=== PATIENT | female | born 1935 | race Caucasian/White ===

== ENCOUNTER 2022-11-04 16:12 | Inpatient (IN) | payer MEDICARE, OTHER ==
[~2022-11-04] VITALS: Ht 157.5 cm; Wt 85.7 kg
[2022-11-04] MEDS ORDERED: LORA-258 PO (16:49)
[2022-11-04] MEDS ORDERED: HYDR12.55 PO (16:50)
[2022-11-04] MEDS ORDERED: NIFE-34 PO (16:50)
[2022-11-04] MEDS ORDERED: GUAI400T61 PO (16:50)
[2022-11-04] MEDS ORDERED: HYDR-4077 PO (16:50)
[2022-11-04] MEDS ORDERED: GLUC1KIT IM (16:50)
[2022-11-04] MEDS ORDERED: MAGN400O6 PO (16:50)
[2022-11-04] MEDS ORDERED: MULT-447 PO (16:50)
[2022-11-04] MEDS ORDERED: SERT25TA5 PO (16:50)
[2022-11-04] MEDS ORDERED: ACET-2605 PO (16:50)
[2022-11-04] MEDS ORDERED: MEMA28CA5 PO (16:50)
[2022-11-04] MEDS ORDERED: FLUT1BLS INH (16:50)
[2022-11-04] MEDS ORDERED: DIVA-76 PO (16:50)
[2022-11-04] MEDS ORDERED: DONE5TAB34 PO (16:50)
[2022-11-04] MEDS ORDERED: ASCO-352 PO (16:50)
[2022-11-04] MEDS ORDERED: ICOS1CAP PO (16:50)
[2022-11-04] MEDS ORDERED: ACET-868 PO (16:50)
[2022-11-04] MEDS ORDERED: SENN-261 PO (16:50)
[2022-11-04] MEDS ORDERED: IRBE150T28 PO (16:50)
[2022-11-04] MEDS ORDERED: PANT40TA49 PO (16:50)
[2022-11-04] MEDS ORDERED: POTA-165 PO (16:50)
[2022-11-04] MEDS ORDERED: BISA10SU11 RC (16:50)
[2022-11-04] MEDS ORDERED: METO25TA3 PO (16:50)
[2022-11-04] MEDS ORDERED: ERGO500093 PO (16:50)
[2022-11-04] MEDS ORDERED: NA P133E RC (16:50)
[2022-11-04] MEDS ORDERED: DOCU-141 PO (16:50)
[2022-11-04] MEDS ORDERED: RISP0.2515 PO (16:50)
[2022-11-04] MEDS ORDERED: MONT10TA22 PO (16:50)
[2022-11-04] MEDS ORDERED: FURO20TA4 PO (16:50)
--- NOTE | 2022-11-04 16:50 | NUR ---
BHARAT FLOR [facility] FOR AGITATION/AGRRESSION TO FACILITY STAFF. THE PATIENT IS ALERT AND ORIENTED 1-2. DENIES PAIN. IN ROOM AIR AND DENIES SOB. RESPIRATION REGULAR AND UNLABORED. DENIES SI/HI. DENIES HAVING ANY TYPE OF HALLUCINATIONS. THE PATIENT IS ATTACHED TO THE MONITOR. WILL CONTINUE TO MONITOR THE PATIENT.
--- NOTE | 2022-11-04 17:08 | NUR ---
COVID SWAB DONE, URINE COLLECTED AND THE SPECIMENS ARE SENT TO THE LAB
[2022-11-04 17:37] LABS: BILIRUBIN,URINE NEGATIVE (NEGATIVE); COLOR,URINE YELLOW (YELLOW); LEUKOCYTE ESTERASE ,URINE TRACE (NEGATIVE); NITRITE, URINE NEGATIVE (NEGATIVE); PROTEIN,URINE TRACE mg/dl (NEGATIVE); UGLUCOSE NEGATIVE (NEGATIVE); UROBILINOGEN,URINE 0.2 EU/dL (0.2)
--- NOTE | 2022-11-04 18:07 | NUR ---
GOT BED 212-B ADMITTING INFORMED.
[2022-11-04 18:20] LABS: BASOPHILS # (AUTO) 0.1 K/uL (0.0-0.2); BASOPHILS % (AUTO) 1.3 % (0.0-2.0); EOSINOPHILS % (AUTO) 2.1 % (0.0-6.0); HEMATOCRIT 41 % (33-45); LYMPHOCYTES # (AUTO) 2.3 K/uL (0.8-4.8); LYMPHOCYTES % (AUTO) 28.4 % (20.0-44.0); MEAN CORPUSCULAR HGB CONC 32 g/dl (31.0-36.0); MEAN CORPUSCULAR VOLUME 78 fL (82-100); MONOCYTES # (AUTO) 1.2 K/uL (0.1-1.30); MONOCYTES % (AUTO) 14.4 % (2.0-12.0); NEUTROPHILS # (AUTO) 4.3 K/uL (1.8-8.9); NEUTROPHILS % (AUTO) 53.8 % (43.0-81.0); PLATELET COUNT (AUTO) 257 K/uL (150-450); RED BLOOD CELL COUNT(AUTO) 5.27 MIL/uL (4.0-5.2); WHITE BLOOD COUNT (AUTO) 8.1 K/uL (4.3-11.0)
[2022-11-04 18:34] LABS: BACTERIA,URINE Few /HPF (None Seen); RBC,URINE NONE SEEN /HPF (0-2)
[2022-11-04 18:35] LABS: HYALINE CASTS, URINE Few /LPF (None Seen); MUCUS,URINE Few /LPF (None Seen)
[2022-11-04 18:35] LABS: CALCIUM, SERUM 9.6 mg/dL (8.5-10.1); CARBON DIOXIDE 32 mmol/L (21-32); CHLORIDE 103 mmol/L (98-107); CREATININE 1.4 mg/dL (0.6-1.3); GLUCOSE 130 mg/dL (74-106); POTASSIUM 3.8 mmol/L (3.5-5.1); SODIUM SERUM 143 mmol/L (136-145); UREA NITROGEN, BLOOD 30 mg/dL (7-18)
[2022-11-04 18:40] LABS: ALANINE AMINOTRANSFERASE 20 U/L (12-78); ALBUMIN 3.2 g/dL (3.4-5.0); ALCOHOL, BLOOD < 3 mg/dL (0-0); ALKALINE PHOSPHATASE 68 U/L (46-116); ASPARTATE AMINOTRANSFERASE 13 U/L (15-37); BILIRUBIN,DIRECT 0.1 mg/dL (0.0-0.2); BILIRUBIN,TOTAL 0.5 mg/dL (0.2-1.0); TOTAL PROTEIN, SERUM 6.6 g/dL (6.4-8.2)
[2022-11-04] MEDS ORDERED: OLANZAPINE 10 MG VIAL IM ONE (19:00)
--- NOTE | 2022-11-04 19:30 | NUR ---
HENRIQUE FROM CRISIS TEAM AT BED SIDE
--- NOTE | 2022-11-04 19:46 | NUR ---
5150 HOLD EFFECTIVE 1945 GD
[2022-11-04] MEDS ORDERED: IV NS 0.9% 1,000 ML IV ONE (20:00)
--- NOTE | 2022-11-04 20:05 | NUR ---
CALLED TO GIVE REPORT. NOT ABLE TO TAKE REPORT RIGHT NOW. PER NURSE " HAVING A SITUATION, CANNOT TAKE REPORT RIGHT NOW".
--- NOTE | 2022-11-04 20:07 | NUR ---
NURSE AIR CHIPPER AWARE THAT [facility] DID NOT TAKE REPORT FOR 212
--- NOTE | 2022-11-04 20:18 | NUR ---
REPORT GIVEN TO JACKLYN VANEGAS BIJAL
--- NOTE | 2022-11-04 20:34 | NUR ---
TRANSFERRED TO [facility] IN STABLE CONDITION
[2022-11-04] MEDS ORDERED: MAG HYDROX/AL HYDROX/SIMETH 30 ML UDC PO PRN (21:00)
[2022-11-04] MEDS ORDERED: MAGNESIUM HYDROXIDE 30 ML UDC PO PRN (21:00)
[2022-11-04] MEDS ORDERED: BLOOD SUGAR DIAGNOSTIC 1 EACH STRIP IN ONE (21:00)
--- NOTE | 2022-11-04 23:06 | NUR ---
ADULT BASIC EDUCATION INSTRUCTOR NOTE: Admitted this 86 y/o female who was from [facility] ;medically cleared and placed on 5150 hold for Gravely Disable at [facility]. .Per hold ,patient was anxious,and restless,threatening to hit staff,screaming and yelling,responding to internal stimuli,preoccupied with her own thought ,talking to self ;threatening to strike out at staff,throwing objects at staff member,has poor impulse control and has no regards to the safety of others. Upon facer to face assessment,patient appears to be asleep but easily awaken ;accompanied by family member, her son upon arrival on the unit.Per report,patient received Zyprexa 10 mg IM prior ar ER to admission to [facility].Patient appears to alert,oriented to name only,confused ,disorganized thought process ,easily irritable and agitated .Skin check done,contraband done.Reviewed patient Rights and unable to verbalize understanding.MD notified of the patient admission.Will continue to monjitor q15 min rounds for safety.
[2022-11-05] MEDS: TEMAZEPAM 7.5 MG CAPSULE PO PRN (00:08)
--- NOTE | 2022-11-05 06:40 | NUR ---
RN CLOSING NOTE LEFT PATIENT SLEEPING IN BED. COMPLIANT WITH MEDICATIONS. PT UKRAINIAN SPEAKING ONLY. AMBULATORY WITH ASSIST. ALL NEEDS ATTENDED AND ANTICIPATED. WILL ENDORSE TO INCOMING SHIFT FOR CONTINUITY OF CARE.
[2022-11-05 08:00] VITALS: BP 124/54
[2022-11-05 08:47] LABS: CREATININE 1.2 mg/dL (0.6-1.3)
[2022-11-05] MEDS ORDERED: ACETAMINOPHEN ES 500 MG TABLET PO PRN (11:00)
[2022-11-05] MEDS ORDERED: BISACODYL SUPP (10 MG) 10 MG/SUPP.RECT SUPP.RECT RC PRN (11:00)
[2022-11-05] MEDS ORDERED: NA PHOS,M-B/NA PHOS,DI-BA 1 EA ENEMA RC PRN (11:00)
[2022-11-05] MEDS ORDERED: MAGNESIUM HYDROXIDE 30 ML UDC PO PRN (11:00)
--- NOTE | 2022-11-05 11:48 | NUR ---
SHANNAN Initial Discharge Note: Patient currently resides at [facility] located at [address] [place] [address]; ([phone]). SHANNAN will contact pt's son Leticia ([phone]) to discuss treatment/discharge plan. SHANNAN will continue to work with the MD, family, and treatment team.
--- NOTE | 2022-11-05 11:49 | NUR ---
Treatment Plan: Pt unable to sign treatment plan. Pt unable to comprehend.
--- NOTE | 2022-11-05 11:49 | NUR ---
SHANNAN Clinical Note: Pt placed on a 5150 hold for GD and danger to others. Pt was aggressive at her facility. Patient currently resides at [facility] located at [address] [place] [address]; ([phone]). SHANNAN will contact pt's son Leticia ([phone]) to discuss treatment/discharge plan.
[2022-11-05] MEDS: DIVALPROEX SODIUM 125 MG CAP.SPRINK PO SCH ×2 (12:47→16:35)
--- NOTE | 2022-11-05 13:11 | NUR ---
Facility Contact: SW contacted [facility] and spoke with Hafsa frias ([phone]) who stated that when pt is stable she is welcomed back but they would want a referral packet sent.
--- NOTE | 2022-11-05 13:55 | NUR ---
SHANNAN Family Contact: SHANNAN contacted pt's son Leticia ([phone]) and discussed treatment and discharge plan. He would want pt back to [facility] when pt is stable.
[2022-11-05 16:00] VITALS: BP 114/91
[2022-11-05] MEDS: risperiDONE 0.25 MG TABLET PO SCH (16:35)
[2022-11-05] MEDS: MEMANTINE HCL 5 MG TABLET PO SCH (16:35)
[2022-11-05] MEDS: DOCUSATE SODIUM 100 MG CAPSULE PO SCH (16:35)
[2022-11-05] MEDS ORDERED: Medication Not On Formulary EA (Icosapent Ethyl (Vascepa) 2 GM) PO SCH (17:00)
--- NOTE | 2022-11-05 20:23 | NUR ---
FINANCIAL SERVICES PROFESSIONAL NOTES: RECEIVED PATIENT IN HER ROOM, RESTING IN BED. CALM AND QUIET AT THIS TIME. A/O X2. ON ROOM AIR. BREATHING AND UNLABORED. NO ACUTE DISTRESS NOTED. NO C/O PAIN AT THIS TIME. SAFETY MEASURES IN PLACE. WILL CONTINUE TO MONITOR FOR SAFETY AND BEHAVIOR.
[2022-11-05 20:26] VITALS: BP 117/52
[2022-11-05] MEDS: SENNOSIDES 8.6 MG TABLET PO SCH (22:04)
--- NOTE | 2022-11-06 06:15 | NUR ---
GRANULATOR MACHINE OPERATOR NOTES: PATIENT IN BED, SLEEPING, EASILY AROUSABLE. A/O X2. NO DISTRESS NOTED. NO C/O PAIN AT THIS TIME. PATIENT CALM AND QUIET DURING SHIFT. SLEPT WELL. MEDICATION COMPLIANT. AMBULATORY WITH ASSISTANCE OF A WALKER. ALL NEEDS RENDERED. WILL ENDORSE TO ONCOMING SHIFT FOR CONTINUITY OF CARE.
[2022-11-06 08:00] VITALS: BP 152/54
[2022-11-06] MEDS: risperiDONE 0.25 MG TABLET PO SCH ×2 (09:27→17:39)
[2022-11-06] MEDS: PANTOPRAZOLE 40 MG TABLET.DR PO SCH (09:29)
[2022-11-06] MEDS: hydrALAZINE HCL 50 MG TABLET PO SCH (09:29)
[2022-11-06] MEDS: DIVALPROEX SODIUM 125 MG CAP.SPRINK PO SCH ×3 (09:29→17:38)
[2022-11-06] MEDS: METOPROLOL SUCCINATE 25 MG TAB.SR.24H PO SCH (09:29)
[2022-11-06] MEDS: MEMANTINE HCL 5 MG TABLET PO SCH ×2 (09:30→17:39)
[2022-11-06] MEDS: MONTELUKAST SODIUM (10MG) 10 MG TABLET PO SCH (09:30)
[2022-11-06] MEDS: DONEPEZIL 5 MG TABLET PO SCH (09:30)
[2022-11-06] MEDS: LOSARTAN POTASSIUM 50 MG TABLET PO SCH (09:30)
[2022-11-06] MEDS: NIFEDIPINE XL 60 MG TAB.ER.24 PO SCH (09:31)
[2022-11-06] MEDS: DOCUSATE SODIUM 100 MG CAPSULE PO SCH ×2 (09:31→17:39)
[2022-11-06] MEDS: HYDROCHLOROTHIAZIDE 25 MG TABLET PO SCH (09:33)
--- NOTE | 2022-11-06 11:30 | NUR ---
Patient yelling and screaming agitated holding her throat ,psychotic ,unable to follow directions dr. ugarte ordered zyprexa 5mg IM and given at 1130 .
[2022-11-06] MEDS ORDERED: OLANZAPINE 10 MG VIAL IM STA (11:31)
--- NOTE | 2022-11-06 11:38 | NUR ---
Dr. Ricardo ordered to cancel A1C.
--- NOTE | 2022-11-06 11:40 | NUR ---
Dr. Nguyen added Ativan 1 mg IM x1.
[2022-11-06] MEDS ORDERED: LORAZEPAM INJ 2 MG/ML VIAL IM ONE (12:00)
[2022-11-06] MEDS: LORAZEPAM 0.5 MG TABLET PO SCH (17:37)
[2022-11-06 18:47] VITALS: BP 137/53
--- NOTE | 2022-11-06 20:12 | NUR ---
CHEMIST PROTEINS NOTES:RECEIVED PATIENT UP ON THE NATE-CHAIR APPEAR CALM. A/OX2.PATIENT IS DISPLAYING NO APPARENT DISTRESS. BREATHING EVEN AND NON-LABORED WITH EQUAL RISE AND FALL OF THE CHEST. NO C/O PAIN OR DISCOMFORT AT THIS TIME. PATIENT IS RESTLESS, CONFUSED AND DISORIENTED. ALL NEEDS ATTENDED AND ANTICIPATED. WILL CONTINUE TO MONITOR Q15 MINS FOR SAFETY AND BEHAVIOR WITH HELP OF THE STAFF.
[2022-11-06 21:07] VITALS: BP 144/45
[2022-11-06] MEDS: SENNOSIDES 8.6 MG TABLET PO SCH (21:23)
[2022-11-06] MEDS: TEMAZEPAM 7.5 MG CAPSULE PO PRN (22:17)
--- NOTE | 2022-11-06 22:24 | NUR ---
PATIENT C/O INSOMNIA. ADMINISTER TEMAZEPAM 7.5 MG PRN ORDERED. WILL CONTINUE TO MONITOR
[2022-11-07 08:00] VITALS: BP 153/99
[2022-11-07] MEDS: MONTELUKAST SODIUM (10MG) 10 MG TABLET PO SCH (08:18)
[2022-11-07] MEDS: risperiDONE 0.25 MG TABLET PO SCH ×3 (08:18→16:36)
[2022-11-07] MEDS: DOCUSATE SODIUM 100 MG CAPSULE PO SCH ×2 (08:18→16:36)
[2022-11-07] MEDS: METOPROLOL SUCCINATE 25 MG TAB.SR.24H PO SCH (08:19)
[2022-11-07] MEDS: LORAZEPAM 0.5 MG TABLET PO SCH ×2 (08:19→16:38)
[2022-11-07] MEDS: hydrALAZINE HCL 50 MG TABLET PO SCH (08:20)
[2022-11-07] MEDS: PANTOPRAZOLE 40 MG TABLET.DR PO SCH (08:20)
[2022-11-07] MEDS: DONEPEZIL 5 MG TABLET PO SCH (08:20)
[2022-11-07] MEDS: DIVALPROEX SODIUM 125 MG CAP.SPRINK PO SCH ×3 (08:20→16:36)
[2022-11-07] MEDS: MEMANTINE HCL 5 MG TABLET PO SCH ×2 (08:20→16:36)
[2022-11-07] MEDS: LOSARTAN POTASSIUM 50 MG TABLET PO SCH (08:20)
[2022-11-07] MEDS: NIFEDIPINE XL 60 MG TAB.ER.24 PO SCH (08:23)
[2022-11-07] MEDS: HYDROCHLOROTHIAZIDE 25 MG TABLET PO SCH (08:24)
--- NOTE | 2022-11-07 09:35 | NUR ---
NOTED PT WITH BEHAVIOR YELLING AND SCREAMING WHILE UP IN NATE CHAIR WITH LAP. TRYING TO GET OUT OF THE NATE DASHA. REORIENTED PT PLACE AND TO STOP YELLING AND SCREAMING. PT DOESNT FOLLOW COMMANDS. CONT TO YELL ANG SCREAM. DR. RODRÍGUEZ NOTIFIED. AWAITING ORDER.
--- NOTE | 2022-11-07 09:44 | NUR ---
Dr. Nguyen ordered Ativan 1 mg IMx1 and Zyprexa 5 mg IMx1. Addendum: 11/07/22 at 1336 by JOSE M GOOD RN Jc Mcgraw made aware of the incident
[2022-11-07] MEDS ORDERED: LORAZEPAM INJ 2 MG/ML VIAL IM ONE (10:00)
[2022-11-07] MEDS ORDERED: OLANZAPINE 10 MG VIAL IM ONE (10:00)
[2022-11-07 16:00] VITALS: BP 140/75
[2022-11-07] MEDS: ACETAMINOPHEN 325 MG TABLET PO PRN (17:01)
--- NOTE | 2022-11-07 17:49 | NUR ---
PT IN BED AAOX1 WITH CONFUSION, WORDS DOESNT MAKE SENSE. MEDS GIVEN ORDERED. ON MONITORING Q15MIN. DENIES SI/HI.
--- NOTE | 2022-11-07 19:39 | NUR ---
RN NOTES: UPON ENDORSEMENT SHE WAS ASLEEP, AROUND 1926 SHE WAS AWAKE, ORIENTED TO UNIT AND STAFF, TALKING INCOMPREHENSIBLE WORDS, RN DO REDIRECTION BY OFFERING SNACK,SHE EAT JELLO AND APPLESAUCE, ASPIRATION PRECAUTION OBSERVED.
[2022-11-07 20:00] VITALS: BP 107/50
[2022-11-07] MEDS: SENNOSIDES 8.6 MG TABLET PO SCH (21:17)
[2022-11-07] MEDS: risperiDONE 1 MG TABLET PO SCH (21:17)
--- NOTE | 2022-11-07 21:32 | NUR ---
RN NOTES: AWAKE AND TOOK HER MEDICATION.ASPIRATION PRECAUTION OBSERVED.
[2022-11-08] MEDS: ACETAMINOPHEN 325 MG TABLET PO PRN (02:15)
--- NOTE | 2022-11-08 02:15 | NUR ---
RN NOTES: GUARDING POSITION ON THE ABDOMEN AREA, WHEN ASK IF SHE HAS PAIN, SHE WAS TELLING "DARD", GIVEN PRN MEDS.NON PHARMACOLOGIC INTERVENTION RENDERED
--- NOTE | 2022-11-08 05:58 | NUR ---
RN NOTES: AFTER PRN MEDS GIVEN ABLE TO SLEEP AND REST WELL AT 0230.STILL ASLEEP.
[2022-11-08 08:00] VITALS: BP 100/60
[2022-11-08] MEDS: DOCUSATE SODIUM 100 MG CAPSULE PO SCH ×2 (08:18→17:15)
[2022-11-08] MEDS: risperiDONE 0.25 MG TABLET PO SCH ×3 (08:19→17:14)
[2022-11-08] MEDS: MEMANTINE HCL 5 MG TABLET PO SCH ×2 (08:19→17:15)
[2022-11-08] MEDS: MONTELUKAST SODIUM (10MG) 10 MG TABLET PO SCH (08:19)
[2022-11-08] MEDS: DIVALPROEX SODIUM 125 MG CAP.SPRINK PO SCH ×3 (08:19→17:15)
[2022-11-08] MEDS: HYDROCHLOROTHIAZIDE 25 MG TABLET PO SCH (08:20)
[2022-11-08] MEDS: hydrALAZINE HCL 50 MG TABLET PO SCH (08:20)
[2022-11-08] MEDS: LOSARTAN POTASSIUM 50 MG TABLET PO SCH (08:21)
[2022-11-08] MEDS: METOPROLOL SUCCINATE 25 MG TAB.SR.24H PO SCH (08:21)
[2022-11-08] MEDS: LORAZEPAM 0.5 MG TABLET PO SCH ×3 (08:21→17:14)
[2022-11-08] MEDS: PANTOPRAZOLE 40 MG TABLET.DR PO SCH (08:22)
[2022-11-08] MEDS: NIFEDIPINE XL 60 MG TAB.ER.24 PO SCH (08:23)
[2022-11-08] MEDS: DONEPEZIL 5 MG TABLET PO SCH (09:06)
[2022-11-08] MEDS: LORAZEPAM 0.5 MG TABLET PO PRN (10:45)
--- NOTE | 2022-11-08 10:45 | NUR ---
pt c/o anxiety medicated with Ativan 0.5mg po x1 .
[2022-11-08 16:00] VITALS: BP 116/67
--- NOTE | 2022-11-08 19:05 | NUR ---
RN opening notes Received Pt from morning nurse. Pt is sitting comfortably in gerychair. Pt is alert and orientedX1-2, calm, and meds compliant. Pt speak Kenyan and able to make needs known. On room air. No SOB. No S/s of distress noted. Pt denies SI/HI at this time. Reality orientation provided. Snacks is offered. safety precautions is maintained. Will continue to monitor Q 15 mins checks for safety and behavior.
[2022-11-08 20:00] VITALS: BP 134/51
[2022-11-08] MEDS ORDERED: HYDROCODONE/APAP 10/325MG TABLET PO PRN (20:30)
[2022-11-08] MEDS: risperiDONE 1 MG TABLET PO SCH (21:39)
[2022-11-08] MEDS: SENNOSIDES 8.6 MG TABLET PO SCH (21:39)
[2022-11-09 07:07] LABS: BASOPHILS # (AUTO) 0.1 K/uL (0.0-0.2); EOSINOPHILS % (AUTO) 2.3 % (0.0-6.0); HEMATOCRIT 39 % (33-45); HEMOGLOBIN 12.4 g/dL (11.5-14.8); LYMPHOCYTES # (AUTO) 2.2 K/uL (0.8-4.8); LYMPHOCYTES % (AUTO) 24.7 % (20.0-44.0); MEAN CORPUSCULAR HGB CONC 32 g/dl (31.0-36.0); MEAN CORPUSCULAR VOLUME 77 fL (82-100); MONOCYTES # (AUTO) 1.3 K/uL (0.1-1.30); PLATELET COUNT (AUTO) 199 K/uL (150-450); WHITE BLOOD COUNT (AUTO) 8.7 K/uL (4.3-11.0)
[2022-11-09 07:24] LABS: ALBUMIN 2.5 g/dL (3.4-5.0); BILIRUBIN,TOTAL 0.5 mg/dL (0.2-1.0); CALCIUM, SERUM 8.9 mg/dL (8.5-10.1); POTASSIUM 3.8 mmol/L (3.5-5.1); TOTAL PROTEIN, SERUM 5.8 g/dL (6.4-8.2)
[2022-11-09 08:00] VITALS: BP 127/76
[2022-11-09] MEDS: hydrALAZINE HCL 50 MG TABLET PO SCH (08:51)
[2022-11-09] MEDS: DIVALPROEX SODIUM 125 MG CAP.SPRINK PO SCH ×3 (08:52→16:54)
[2022-11-09] MEDS: DOCUSATE SODIUM 100 MG CAPSULE PO SCH ×2 (08:52→16:53)
[2022-11-09] MEDS: METOPROLOL SUCCINATE 25 MG TAB.SR.24H PO SCH (08:52)
[2022-11-09] MEDS: risperiDONE 0.25 MG TABLET PO SCH (08:52)
[2022-11-09] MEDS: MEMANTINE HCL 5 MG TABLET PO SCH ×2 (08:52→16:54)
[2022-11-09] MEDS: PANTOPRAZOLE 40 MG TABLET.DR PO SCH (08:53)
[2022-11-09] MEDS: MONTELUKAST SODIUM (10MG) 10 MG TABLET PO SCH (08:53)
[2022-11-09] MEDS: LORAZEPAM 0.5 MG TABLET PO SCH ×3 (08:53→16:52)
[2022-11-09] MEDS: DONEPEZIL 5 MG TABLET PO SCH (08:53)
[2022-11-09] MEDS: HYDROCHLOROTHIAZIDE 25 MG TABLET PO SCH (08:53)
[2022-11-09] MEDS: LOSARTAN POTASSIUM 50 MG TABLET PO SCH (08:54)
[2022-11-09] MEDS: NIFEDIPINE XL 60 MG TAB.ER.24 PO SCH (08:57)
[2022-11-09 16:00] VITALS: BP 122/61
--- NOTE | 2022-11-09 18:42 | NUR ---
RN- CLOSING NOTES PATIENT ASLEEP, SITTING UP IN NATE CHAIR. BREATHING EVEN AND NON LABORED WITH NO S/S OF DISTRESS. PATIENT IS COOPERATIVE, CONFUSED, DISORIENTED, GUARDED, ANXIOUS, DEPRESSED, AND ISOLATIVE. PATIENT ATTEMPTING TO DISROBE AND GET OUT OF BED WITHOUT ASSISTANCE, PATIENT SAT UP IN NATE CHAIR FOR SAFETY. REQUIRES FREQUENT REDIRECTION. PATIENT IS MEDICATION RESISTANT BUT MEDICATION COMPLIANT WITH ENCOURAGEMENT. DENIES SI/HI BUT IS CONFUSED AT THIS TIME. WILL CONTINUE TO MONITOR Q 15 MINUTES FOR SAFETY AND BEHAVIOR.
[2022-11-09 20:00] VITALS: BP 118/58
[2022-11-09 20:35] VITALS: BP 118/58
[2022-11-09] MEDS: risperiDONE 1 MG TABLET PO SCH (21:14)
[2022-11-09] MEDS: SENNOSIDES 8.6 MG TABLET PO SCH (21:14)
[2022-11-09] MEDS: TEMAZEPAM 7.5 MG CAPSULE PO PRN (22:31)
[2022-11-10 08:00] VITALS: BP 128/79
[2022-11-10] MEDS: MEMANTINE HCL 5 MG TABLET PO SCH ×2 (08:31→16:28)
[2022-11-10] MEDS: LORAZEPAM 0.5 MG TABLET PO SCH ×3 (08:31→16:28)
[2022-11-10] MEDS: DONEPEZIL 5 MG TABLET PO SCH (08:31)
[2022-11-10] MEDS: METOPROLOL SUCCINATE 25 MG TAB.SR.24H PO SCH (08:32)
[2022-11-10] MEDS: hydrALAZINE HCL 50 MG TABLET PO SCH (08:33)
[2022-11-10] MEDS: DIVALPROEX SODIUM 125 MG CAP.SPRINK PO SCH ×2 (08:33→16:28)
[2022-11-10] MEDS: MONTELUKAST SODIUM (10MG) 10 MG TABLET PO SCH (08:34)
[2022-11-10] MEDS: NIFEDIPINE XL 60 MG TAB.ER.24 PO SCH (08:34)
[2022-11-10] MEDS: PANTOPRAZOLE 40 MG TABLET.DR PO SCH (08:34)
[2022-11-10] MEDS: LOSARTAN POTASSIUM 50 MG TABLET PO SCH (08:34)
[2022-11-10] MEDS: DOCUSATE SODIUM 100 MG CAPSULE PO SCH ×2 (08:34→16:28)
[2022-11-10] MEDS: HYDROCHLOROTHIAZIDE 25 MG TABLET PO SCH (08:35)
[2022-11-10 16:00] VITALS: BP 122/71
[2022-11-10 17:33] LABS: BILIRUBIN,URINE NEGATIVE (NEGATIVE); COLOR,URINE YELLOW (YELLOW); LEUKOCYTE ESTERASE ,URINE 3+ (NEGATIVE); NITRITE, URINE POSITIVE (NEGATIVE); PROTEIN,URINE 2+ mg/dl (NEGATIVE); UGLUCOSE NEGATIVE (NEGATIVE)
[2022-11-10 17:58] LABS: BACTERIA,URINE 3+ /HPF (None Seen); RBC,URINE 21-50 /HPF (0-2); SQUAMOUS EPITHELIAL CELL,UR None Seen /HPF (None Seen); WBC,URINE 51-80 /HPF (0-3)
[2022-11-10] MEDS: risperiDONE 1 MG TABLET PO SCH ×2 (18:44→21:34)
--- NOTE | 2022-11-10 19:01 | NUR ---
NURSE NOTE: URINE SPEC COLLECTED CLEAN CATCH AND SENT TO LAB FOR UA AND UCX. UA RESULTS GIVEN TO RACE CAR DRIVER NADIYA. PT TO START ON ATB. WILL ENFORCE TO BIOMETRICS CONSULTANT
[2022-11-10 21:06] VITALS: BP 104/45
[2022-11-10] MEDS: SENNOSIDES 8.6 MG TABLET PO SCH (21:34)
[2022-11-10] MEDS: CEPHALEXIN MONOHYDRATE 500 MG CAPSULE PO SCH (21:34)
--- NOTE | 2022-11-11 07:07 | NUR ---
[facility] RN NOTE RECEIVED PATIENT SLEEPING IN BED, NO S/S OF DISTRESS OR DISCOMFORT. PATIENT RESTING WELL, NO BEHAVIOR NOTED AT THIS TIME, A/Ox2. NO S/S OF RESPIRATORY DISTRESS. WILL CONTINUE TO MONITOR.
[2022-11-11 08:00] VITALS: BP 117/59
[2022-11-11] MEDS: HYDROCHLOROTHIAZIDE 25 MG TABLET PO SCH (09:00)
[2022-11-11] MEDS: METOPROLOL SUCCINATE 25 MG TAB.SR.24H PO SCH (09:00)
[2022-11-11] MEDS: hydrALAZINE HCL 50 MG TABLET PO SCH (09:00)
[2022-11-11] MEDS: NIFEDIPINE XL 60 MG TAB.ER.24 PO SCH (09:00)
[2022-11-11] MEDS: MEMANTINE HCL 5 MG TABLET PO SCH ×2 (09:00→16:42)
[2022-11-11] MEDS: DOCUSATE SODIUM 100 MG CAPSULE PO SCH ×2 (09:00→16:42)
[2022-11-11] MEDS: MONTELUKAST SODIUM (10MG) 10 MG TABLET PO SCH (09:06)
[2022-11-11] MEDS: DIVALPROEX SODIUM 125 MG CAP.SPRINK PO SCH ×2 (09:06→16:42)
[2022-11-11] MEDS: CEPHALEXIN MONOHYDRATE 500 MG CAPSULE PO SCH ×2 (09:06→20:04)
[2022-11-11] MEDS: PANTOPRAZOLE 40 MG TABLET.DR PO SCH (09:07)
[2022-11-11] MEDS: LORAZEPAM 0.5 MG TABLET PO SCH ×2 (09:07→12:03)
[2022-11-11] MEDS: risperiDONE 1 MG TABLET PO SCH ×3 (09:07→21:26)
[2022-11-11] MEDS: DONEPEZIL 5 MG TABLET PO SCH (09:07)
[2022-11-11] MEDS: LOSARTAN POTASSIUM 50 MG TABLET PO SCH (09:12)
--- NOTE | 2022-11-11 10:00 | NUR ---
RN NOTE PATIENT REFUSED TO TAKE ALL MORNING MEDICATION THIS MORNING. MOST MEDICATION ADMINISTERED, PATIENT BEGAN TO SPIT MEDICATION OUT AFTER FIRST FEW WERE TAKEN. PATIENT NOW RESTING IN BED, COMFORTABLE.
--- NOTE | 2022-11-11 10:02 | NUR ---
bond underwriter was notified by previous nurse that son of pt would like to speak to the Doctor today if possible.
--- NOTE | 2022-11-11 12:57 | NUR ---
RN NOTE PATIENT VERY SLEEPY, HOLDING AFTERNOON MD CHANDU AWARE.
--- NOTE | 2022-11-11 14:16 | NUR ---
Court Notification: SW contacted pt's son Leticia ([phone]) and notified of 5250 hearing.
--- NOTE | 2022-11-11 14:17 | NUR ---
Court Hearin hearing was upheld for danger to others and GD.
[2022-11-11 16:09] VITALS: BP 125/66
--- NOTE | 2022-11-11 18:50 | NUR ---
[facility] RN CLOSING NOTE PATIENT SLEEPING IN ROOM, NO S/S OF DISTRESS OR DISCOMFORT. PATIENT RESTING WELL, NO BEHAVIOR NOTED AT THIS TIME, A/Ox2. NO S/S OF RESPIRATORY DISTRESS. WILL CONTINUE TO MONITOR.
--- NOTE | 2022-11-11 19:30 | NUR ---
RN OPENING NOTES RECEIVED PATIENT IN BED WHILE SLEEPING. RESPONSIVE TO TACTILE STIMULI. NO FACIAL GRIMACING NOTED. NO PAIN NOTED. NO RESPIRATORY DISTRESS NOTED. SON VISITED THE PATIENT. PATIENT VERY SLEEPY. NOT OPENING HER EYES. WITH THE ASSISTANCE OF THE SON , ABLE TO AWAKEN THE PATIENT. CHECKED BLOOD SUGAR NOTED 140. GAVE WATER AND SOME JELLO. PATIENT WAS ABLE TO SWALLOW. THE SON STATED PLEASE DO NOT GIVE RISPERDAL SINCE SHE IS SO SLEEPY. KEFLEX GIVEN AT 2000. PATIENT WAS ABLE TO SWALLOW. THE SON GAVE HER THE WHOLE APPLE SAUCE AND JELLO AND ENCOURAGED FOR WATER CONSUMPTION. ALL NEEDS ATTENDED. VITAL SIGNS IN NORMAL RANGES. SON CONCERN FOR THE PATIENT'S CONDITION AND BEING SLEEPY MOST OF THE TIME. WILL ENDORSE IN THE MORNING FOR HYDRATION AND FOOD CONSUMPTION. ALL SAFETY MEASURES IN PLACE. HOB ELEVATED. BED LOCKED IN THE LOWEST POSITION. TABLE IN EASY REACH.BED ALARM ON . WILL CONTINUE TO MONITOR CLOSELY.
[2022-11-11 20:15] VITALS: BP 118/67
[2022-11-11] MEDS: SENNOSIDES 8.6 MG TABLET PO SCH (21:26)
--- NOTE | 2022-11-11 22:00 | NUR ---
RN NOTES PER SON'S REQUEST HELD RISPERDAL FOR 0 SINCE PATIENT SO SLEEPY.
--- NOTE | 2022-11-12 06:42 | NUR ---
RN CLOSING NOTES PATIENT IN BED AND SLEEPING. RESPONSIVE TO TACTILE STIMULI. NO FACIAL GRIMACING NOTED. NO PAIN NOTED. NO RESPIRATORY DISTRESS NOTED. PATIENT WAS ABLE TO SWALLOW. OFFERED WATER AND JUICE DURING SHIFT. NO BEHAVIORAL ISSUE NOTED. ALL NEEDS ATTENDED. DUE MEDS GIVEN ORDERED. ALL SAFETY MEASURES IN PLACE. HOB ELEVATED FOR ASPIRATION PRECAUTION. BED LOCKED IN THE LOWEST POSITION. TABLE IN EASY REACH.BED ALARM ON . WILL ENDORSE FOR BIJAL.
[2022-11-12 08:00] VITALS: BP 151/52
[2022-11-12] MEDS: hydrALAZINE HCL 50 MG TABLET PO SCH (08:53)
[2022-11-12] MEDS: NIFEDIPINE XL 60 MG TAB.ER.24 PO SCH (08:54)
[2022-11-12] MEDS: MEMANTINE HCL 5 MG TABLET PO SCH ×2 (08:54→16:36)
[2022-11-12] MEDS: risperiDONE 1 MG TABLET PO SCH ×3 (08:54→21:02)
[2022-11-12] MEDS: CEPHALEXIN MONOHYDRATE 500 MG CAPSULE PO SCH ×2 (08:55→21:02)
[2022-11-12] MEDS: DOCUSATE SODIUM 100 MG CAPSULE PO SCH ×2 (08:55→16:36)
[2022-11-12] MEDS: PANTOPRAZOLE 40 MG TABLET.DR PO SCH (08:55)
[2022-11-12] MEDS: DONEPEZIL 5 MG TABLET PO SCH (08:55)
[2022-11-12] MEDS: DIVALPROEX SODIUM 125 MG CAP.SPRINK PO SCH ×2 (08:55→16:37)
[2022-11-12] MEDS: MONTELUKAST SODIUM (10MG) 10 MG TABLET PO SCH (08:55)
[2022-11-12] MEDS: LOSARTAN POTASSIUM 50 MG TABLET PO SCH (08:55)
[2022-11-12] MEDS: METOPROLOL SUCCINATE 25 MG TAB.SR.24H PO SCH (08:56)
[2022-11-12] MEDS: HYDROCHLOROTHIAZIDE 25 MG TABLET PO SCH (08:57)
[2022-11-12 16:00] VITALS: BP 136/57
[2022-11-12] MEDS ORDERED: Z GUARD REMEDY 4 OZ OINT TP PRN (18:00)
[2022-11-12 20:07] VITALS: BP 126/45
[2022-11-12] MEDS: Z GUARD REMEDY 4 OZ OINT TP SCH (21:02)
[2022-11-12] MEDS: SENNOSIDES 8.6 MG TABLET PO SCH (21:03)
[2022-11-12] MEDS: ACETAMINOPHEN 325 MG TABLET PO PRN (21:27)
--- NOTE | 2022-11-12 23:12 | NUR ---
RN NOTES PATIENT NOTED 99.2 BODY TEMPERATURE TYLENOL 650MG ORALLY GIVEN AND WELL TOLERATED BY THE PATIENT. WILL CONTINUE TO MONITOR.
--- NOTE | 2022-11-12 23:13 | NUR ---
RN NOTES PATIENT RELATIVES REFUSED TO GIVE RISPERDAL AND [place] TO THE PATIENT TICO. PATIENT RELATIVES VERBALIZED " SHE IS ALWAYS ASLEEP FOR 2 DAYS ". WILL CONTINUE TO MONITOR. Addendum: 11/12/22 at 2340 by Clementina Reich RN PATIENT SON WANTS TO TALK TO IN AM.
[2022-11-13 06:31] LABS: BASOPHILS # (AUTO) 0.1 K/uL (0.0-0.2); BASOPHILS % (AUTO) 0.7 % (0.0-2.0); EOSINOPHILS % (AUTO) 1.2 % (0.0-6.0); HEMATOCRIT 40 % (33-45); HEMOGLOBIN 12.7 g/dL (11.5-14.8); LYMPHOCYTES # (AUTO) 1.9 K/uL (0.8-4.8); LYMPHOCYTES % (AUTO) 22.8 % (20.0-44.0); MEAN CORPUSCULAR HGB CONC 32 g/dl (31.0-36.0); MEAN CORPUSCULAR VOLUME 78 fL (82-100); MONOCYTES # (AUTO) 1.6 K/uL (0.1-1.30); MONOCYTES % (AUTO) 19.5 % (2.0-12.0); NEUTROPHILS # (AUTO) 4.7 K/uL (1.8-8.9); NEUTROPHILS % (AUTO) 55.8 % (43.0-81.0); PLATELET COUNT (AUTO) 223 K/uL (150-450); RED BLOOD CELL COUNT(AUTO) 5.17 MIL/uL (4.0-5.2); WHITE BLOOD COUNT (AUTO) 8.4 K/uL (4.3-11.0)
[2022-11-13 07:06] LABS: ALBUMIN 2.1 g/dL (3.4-5.0); BILIRUBIN,TOTAL 0.5 mg/dL (0.2-1.0); CALCIUM, SERUM 9.3 mg/dL (8.5-10.1); POTASSIUM 3.5 mmol/L (3.5-5.1); TOTAL PROTEIN, SERUM 6.2 g/dL (6.4-8.2)
[2022-11-13 08:00] VITALS: BP 139/67
[2022-11-13] MEDS: DONEPEZIL 5 MG TABLET PO SCH (09:00)
[2022-11-13] MEDS: MONTELUKAST SODIUM (10MG) 10 MG TABLET PO SCH (09:00)
[2022-11-13] MEDS: DOCUSATE SODIUM 100 MG CAPSULE PO SCH ×2 (09:00→16:53)
[2022-11-13] MEDS: MEMANTINE HCL 5 MG TABLET PO SCH ×2 (09:00→16:53)
[2022-11-13] MEDS: METOPROLOL SUCCINATE 25 MG TAB.SR.24H PO SCH (09:00)
[2022-11-13] MEDS: NIFEDIPINE XL 60 MG TAB.ER.24 PO SCH (09:00)
[2022-11-13] MEDS: LOSARTAN POTASSIUM 50 MG TABLET PO SCH (09:00)
[2022-11-13] MEDS: hydrALAZINE HCL 50 MG TABLET PO SCH (09:00)
[2022-11-13] MEDS: HYDROCHLOROTHIAZIDE 25 MG TABLET PO SCH (09:00)
[2022-11-13] MEDS: CEPHALEXIN MONOHYDRATE 500 MG CAPSULE PO SCH ×2 (09:00→22:08)
[2022-11-13] MEDS: risperiDONE 1 MG TABLET PO SCH ×3 (09:00→22:09)
[2022-11-13] MEDS: PANTOPRAZOLE 40 MG TABLET.DR PO SCH (09:00)
[2022-11-13] MEDS: DIVALPROEX SODIUM 125 MG CAP.SPRINK PO SCH ×3 (09:00→16:54)
[2022-11-13] MEDS: Z GUARD REMEDY 4 OZ OINT TP SCH ×2 (10:17→22:10)
--- NOTE | 2022-11-13 10:31 | NUR ---
RN-NOTES ALL AM MEDICATIONS WAS NOT ADMINISTER DUE TO PATIENT IS TOO SEDATED. CHARGE NURSE WAS AWARE. WILL NOTIFY THE PSYCHIATRIST
--- NOTE | 2022-11-13 12:07 | NUR ---
RN-NOTES DR. RODRÍGUEZ IN THE UNIT AND MADE AWARE OF ALL 0900 AM MEDICATIONS WAS NOT ADMINISTER DUE TO PATIENT WAS TOO SEDATED AND THAT PATIENT'S SON REQUESTING TO TALK TO HER ( PSYCHIATRIST).
[2022-11-13] MEDS: LORAZEPAM 0.5 MG TABLET PO PRN (13:58)
--- NOTE | 2022-11-13 13:59 | NUR ---
RN-NOTES PATIENT SITTING UP IN THE NATE CHAIR NEXT TO THE NURSE STATION ,NOTED WITH SUDDEN SCREAMING AND YELLING ,REDIRECTED AND ATIVAN 0.5MG P.O GIVEN PRN ORDER. WILL CONT. MONITORING FOR SAFETY AND BEHAVIOR.
--- NOTE | 2022-11-13 15:00 | NUR ---
RN-NOTES PATIENT STILL AT THE NATE CHAIR NEXT TO THE NURSE STATION, CALM INTERMITTENTLY SLEEPING,NO ACUTE DISTRESS NOTED.
[2022-11-13 16:00] VITALS: BP 132/67
[2022-11-13 16:49] LABS: LYMPHOCYTES % (MANUAL) 24 % (16-48); MONOCYTES % (MANUAL) 13 % (0-11.0); NEUTROPHILS % (MANUAL) 63 (42-76)
--- NOTE | 2022-11-13 18:00 | NUR ---
RN-NOTES PATIENT IS VISIBLE IN THE UNIT A/O X1 GUARDED WITH EPISODE OF YELLING AND SCREAMING,NEEDS FREQUENT REDIRECTIONS AND INSTRUCTIONS. COMPLIANT WITH MEDICATIONS WITH ENCOURAGEMENT. NEEDS MODERATE ASSIST WITH ADL'S AND FEEDING. GOOD CHASITY CARE RENDERED. ON PT THERAPY. PATIENT HAD NO PARTICIPATION ON THE ACTIVITY GROUP. ALL NEEDS ATTENDED AND ANTICIPATED. WILL CONT. MONITORING FOR SAFETY AND BEHAVIOR. WILL ENDORSE TO INCOMING SHIFT/NURSE FOR THE CONTINUITY OF CARE.
--- NOTE | 2022-11-13 18:54 | NUR ---
RN-NOTES RECEIVED T.O ORDER FROM RANI CARL OF ACCU-CHECK BID WITH MILD SLIDING SCALE. NOTED AND CARRIED OUT.
[2022-11-13] MEDS ORDERED: DEXTROSE 50%-WATER 50 ML DISP.SYRIN IV PRN (19:00)
--- NOTE | 2022-11-13 20:31 | NUR ---
BENCH ASSEMBLER NOTE: RECEIVED PATIENT SITTING UP IN THE NATE CHAIR NEXT TO THE NURSE STATION CALM AND QUIET WITH FAMILY AT HER SIDE. BREATHING EVEN AND NON-LABORED WITH EQUAL RISE AND FALL OF THE CHEST.RESIDENT TRANSFER TO BED@ 2000 PER FAMILY REQUEST.RESIDENT ASLEEP COMFORTABLY WITH NO S/S OF DISTRESS. NO C/O PAIN NOR DISCOMFORT AT THIS TIME.ALL NEEDS MET AND ANTICIPATED.WILL CONTINUE TO MONITOR Q15 MINS FOR SAFETY AND BEHAVIOR
[2022-11-13] MEDS: SENNOSIDES 8.6 MG TABLET PO SCH (22:09)
--- NOTE | 2022-11-14 07:00 | NUR ---
CARDIAC SPECIALIST OPENING NOTE PATIENT RESTING IN BED, NO S/S OF DISCOMFORT NOTED, NO RESPIRATORY DISTRESS NOTED. SAFETY MEASURES IN PLACE. BED LOCKED TO THE LOWEST POSITION. SIDE RAILS UP X4, TABLE WITHIN REACH. CONT. TO MONITOR.
[2022-11-14 08:00] VITALS: BP 140/58
[2022-11-14] MEDS: BLOOD SUGAR DIAGNOSTIC 1 EACH STRIP IN SCH ×2 (08:06→17:49)
[2022-11-14] MEDS: NIFEDIPINE XL 60 MG TAB.ER.24 PO SCH (09:00)
[2022-11-14] MEDS: DIVALPROEX SODIUM 125 MG CAP.SPRINK PO SCH ×3 (09:38→17:50)
[2022-11-14] MEDS: DOCUSATE SODIUM 100 MG CAPSULE PO SCH ×2 (09:39→17:51)
[2022-11-14] MEDS: hydrALAZINE HCL 50 MG TABLET PO SCH (09:39)
[2022-11-14] MEDS: DONEPEZIL 5 MG TABLET PO SCH (09:39)
[2022-11-14] MEDS: MEMANTINE HCL 5 MG TABLET PO SCH ×2 (09:39→17:50)
[2022-11-14] MEDS: HYDROCHLOROTHIAZIDE 25 MG TABLET PO SCH (09:40)
[2022-11-14] MEDS: CEPHALEXIN MONOHYDRATE 500 MG CAPSULE PO SCH ×2 (09:40→21:16)
[2022-11-14] MEDS: PANTOPRAZOLE 40 MG TABLET.DR PO SCH (09:41)
[2022-11-14] MEDS: LOSARTAN POTASSIUM 50 MG TABLET PO SCH (09:41)
[2022-11-14] MEDS: METOPROLOL SUCCINATE 25 MG TAB.SR.24H PO SCH (09:41)
[2022-11-14] MEDS: MONTELUKAST SODIUM (10MG) 10 MG TABLET PO SCH (09:41)
[2022-11-14] MEDS: risperiDONE 1 MG TABLET PO SCH ×3 (09:45→21:17)
[2022-11-14] MEDS: INSULIN REGULAR, HUMAN 100 UNIT/ML 3 ML VIAL SQ PRN (09:59)
[2022-11-14] MEDS: LORAZEPAM 0.5 MG TABLET PO PRN ×2 (12:03→19:16)
[2022-11-14] MEDS: Z GUARD REMEDY 4 OZ OINT TP SCH ×2 (14:01→21:18)
[2022-11-14 15:58] VITALS: BP 163/83
--- NOTE | 2022-11-14 19:24 | NUR ---
JOURNEYMAN LEVEL ACOUSTIC ANALYST NOTE PATIENT SCREAMING WHILE CLEANING HER UP BY TWO UTILITY LOCATE TECHNICIAN. ATIVAN 0.5MG PO GIVEN INDICATED BY MD. PATIENT TOOK ATIVAN CRUSHED WITHOUT ANY PROBLEM.
--- NOTE | 2022-11-14 20:34 | NUR ---
ASSISTANT PROFESSOR NOTE: RECEIVED PATIENT IN BED AWAKE .A/OX2. BREATHING EVEN AND NON-LABORED WITH EQUAL RISE AND FALL OF THE CHEST. NO C/O PAIN NOR DISCOMFORT AT THIS TIME.RESIDENT IS CONFUSED,RESTLESS ,AGITATED AND DISORGANIZED.BED IN LOWEST,LOCKED POSITION WITH SIDE RAILS UPX2.GOOD CHASITY-CARE RENDERED..ALL NEEDS MET AND ANTICIPATED.WILL CONTINUE TO MONITOR Q15 MINS FOR SAFETY AND BEHAVIOR
[2022-11-14] MEDS: SENNOSIDES 8.6 MG TABLET PO SCH (21:17)
[2022-11-15 08:00] VITALS: BP 147/61
[2022-11-15] MEDS: CEPHALEXIN MONOHYDRATE 500 MG CAPSULE PO SCH ×2 (08:30→21:37)
[2022-11-15] MEDS: MONTELUKAST SODIUM (10MG) 10 MG TABLET PO SCH (08:30)
[2022-11-15] MEDS: NIFEDIPINE XL 60 MG TAB.ER.24 PO SCH (08:30)
[2022-11-15] MEDS: MEMANTINE HCL 5 MG TABLET PO SCH ×2 (08:30→16:59)
[2022-11-15] MEDS: DIVALPROEX SODIUM 125 MG CAP.SPRINK PO SCH ×3 (08:31→16:58)
[2022-11-15] MEDS: PANTOPRAZOLE 40 MG TABLET.DR PO SCH (08:31)
[2022-11-15] MEDS: METOPROLOL SUCCINATE 25 MG TAB.SR.24H PO SCH (08:31)
[2022-11-15] MEDS: DOCUSATE SODIUM 100 MG CAPSULE PO SCH ×2 (08:31→16:58)
[2022-11-15] MEDS: DONEPEZIL 5 MG TABLET PO SCH (08:32)
[2022-11-15] MEDS: HYDROCHLOROTHIAZIDE 25 MG TABLET PO SCH (08:32)
[2022-11-15] MEDS: hydrALAZINE HCL 50 MG TABLET PO SCH (08:32)
[2022-11-15] MEDS: risperiDONE 1 MG TABLET PO SCH ×3 (08:32→21:37)
[2022-11-15] MEDS: LOSARTAN POTASSIUM 50 MG TABLET PO SCH (08:33)
[2022-11-15] MEDS: INSULIN REGULAR, HUMAN 100 UNIT/ML 3 ML VIAL SQ PRN ×2 (08:50→17:52)
[2022-11-15] MEDS: BLOOD SUGAR DIAGNOSTIC 1 EACH STRIP IN SCH ×2 (09:02→17:01)
[2022-11-15] MEDS: Z GUARD REMEDY 4 OZ OINT TP SCH ×2 (09:03→21:39)
[2022-11-15 16:00] VITALS: BP_SYST 120; BP_SYST 128; BP_DIAS 65; BP_DIAS 67
[2022-11-15] MEDS ORDERED: DEXTROSE 50%-WATER 50 ML DISP.SYRIN IV PRN (16:30)
--- NOTE | 2022-11-15 19:49 | NUR ---
UNDERGROUND BOLTING MACHINE OPERATOR NOTE: RECEIVED PATIENT IN BED AWAKE .A/OX2. BREATHING EVEN AND NON-LABORED WITH EQUAL RISE AND FALL OF THE CHEST. NO C/O PAIN NOR DISCOMFORT AT THIS TIME.RESIDENT IS CONFUSED,RESTLESS ,AGITATED AND DISORGANIZED.MEDICATION COMPLIANT.BED IN LOWEST,LOCKED POSITION WITH SIDE RAILS UPX2.GOOD CHASITY-CARE RENDERED.ALL NEEDS MET AND ANTICIPATED.WILL CONTINUE TO MONITOR Q15 MINS FOR SAFETY AND BEHAVIOR
[2022-11-15 20:43] VITALS: BP_SYST 111; BP_SYST 152; BP_DIAS 59; BP_DIAS 83
[2022-11-15] MEDS: SENNOSIDES 8.6 MG TABLET PO SCH (21:37)
[2022-11-16 08:00] VITALS: BP 133/55
[2022-11-16] MEDS: MEMANTINE HCL 5 MG TABLET PO SCH ×2 (09:45→17:10)
[2022-11-16] MEDS: risperiDONE 1 MG TABLET PO SCH ×3 (09:55→21:39)
[2022-11-16] MEDS: DOCUSATE SODIUM 100 MG CAPSULE PO SCH ×2 (09:55→17:09)
[2022-11-16] MEDS: BLOOD SUGAR DIAGNOSTIC 1 EACH STRIP IN SCH ×2 (09:55→17:09)
[2022-11-16] MEDS: MONTELUKAST SODIUM (10MG) 10 MG TABLET PO SCH (09:55)
[2022-11-16] MEDS: HYDROCHLOROTHIAZIDE 25 MG TABLET PO SCH (09:55)
[2022-11-16] MEDS: PANTOPRAZOLE 40 MG TABLET.DR PO SCH (09:55)
[2022-11-16] MEDS: LOSARTAN POTASSIUM 50 MG TABLET PO SCH (09:55)
[2022-11-16] MEDS: METOPROLOL SUCCINATE 25 MG TAB.SR.24H PO SCH (09:55)
[2022-11-16] MEDS: Z GUARD REMEDY 4 OZ OINT TP SCH ×2 (09:55→21:45)
[2022-11-16] MEDS: hydrALAZINE HCL 50 MG TABLET PO SCH (09:55)
[2022-11-16] MEDS: NIFEDIPINE XL 60 MG TAB.ER.24 PO SCH (09:55)
[2022-11-16] MEDS: DIVALPROEX SODIUM 125 MG CAP.SPRINK PO SCH ×3 (09:55→17:09)
[2022-11-16] MEDS: DONEPEZIL 5 MG TABLET PO SCH (09:55)
[2022-11-16] MEDS: CEPHALEXIN MONOHYDRATE 500 MG CAPSULE PO SCH ×2 (09:55→21:38)
--- NOTE | 2022-11-16 11:05 | NUR ---
MEDICATION NOTE AM MEDICATION WAS HELD. PATIENT TOO SEDATED/ SLEEPY. MULTIPLE ATTEMPTS WERE MADE TO FOLLOW UP WITH PATIENT ALERTNESS. PATIENT WILL AWAKE, OPEN EYES AND SPEAK, UNCLEAR AND UNABLE TO UNDERSTAND. PATIENT THEN WILL FALL BACK TO SLEEP.
[2022-11-16] MEDS: INSULIN REGULAR, HUMAN 100 UNIT/ML 3 ML VIAL SQ PRN ×2 (13:31→17:51)
[2022-11-16 16:00] VITALS: BP 131/53
--- NOTE | 2022-11-16 17:20 | NUR ---
MEDICATION NOTE HELD RISPERIDONE, PT WAS TOO SEDATED. AWAKES FOR SHORT PERIODS OR TO EAT.
[2022-11-16] MEDS: ACETAMINOPHEN 325 MG TABLET PO PRN (18:24)
[2022-11-16 20:11] VITALS: BP 134/58
--- NOTE | 2022-11-16 20:55 | NUR ---
TWISTING FRAME CHANGER NOTE: RECEIVED PATIENT IN BED ASLEEP /AROUSABLE. A/OX2. BREATHING EVEN AND NON-LABORED WITH EQUAL RISE AND FALL OF THE CHEST. NO C/O PAIN NOR DISCOMFORT AT THIS TIME.RESIDENT IS CONFUSED,RESTLESS ,AGITATED AND DISORGANIZED.ASSISTING ON TURNING AND REPOSITIONING Q2H FOR CIRCULATION AND COMFORT. BED IN LOWEST,LOCKED POSITION WITH SIDE RAILS UPX2.GOOD CHASITY-CARE RENDERED. ALL NEEDS MET AND ANTICIPATED.WILL CONTINUE TO MONITOR Q15 MINS FOR SAFETY AND BEHAVIOR
[2022-11-16] MEDS: SENNOSIDES 8.6 MG TABLET PO SCH (21:39)
--- NOTE | 2022-11-17 07:16 | NUR ---
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 PT IS INCONTINENT. RECOMMENDATIONS MADE FOR SKIN CARE AND PROTECTION. DISCUSSED WITH NURSING STAFF. IN AGREEMENT WITH PLAN OF CARE. Addendum: 11/17/22 at 0717 by JENNY ECHAVARRIA WNDNU Amended: Links added.
[2022-11-17 08:00] VITALS: BP 145/59
[2022-11-17] MEDS: BLOOD SUGAR DIAGNOSTIC 1 EACH STRIP IN SCH ×2 (08:27→16:32)
[2022-11-17] MEDS: PANTOPRAZOLE 40 MG TABLET.DR PO SCH (08:42)
[2022-11-17] MEDS: hydrALAZINE HCL 50 MG TABLET PO SCH (08:42)
[2022-11-17] MEDS: METOPROLOL SUCCINATE 25 MG TAB.SR.24H PO SCH (08:43)
[2022-11-17] MEDS: risperiDONE 1 MG TABLET PO SCH (08:43)
[2022-11-17] MEDS: DIVALPROEX SODIUM 125 MG CAP.SPRINK PO SCH ×4 (08:43→17:14)
[2022-11-17] MEDS: MEMANTINE HCL 5 MG TABLET PO SCH ×2 (08:43→17:14)
[2022-11-17] MEDS: DONEPEZIL 5 MG TABLET PO SCH (08:44)
[2022-11-17] MEDS: CEPHALEXIN MONOHYDRATE 500 MG CAPSULE PO SCH ×2 (08:44→20:19)
[2022-11-17] MEDS: NIFEDIPINE XL 60 MG TAB.ER.24 PO SCH (08:44)
[2022-11-17] MEDS: LOSARTAN POTASSIUM 50 MG TABLET PO SCH (08:44)
[2022-11-17] MEDS: MONTELUKAST SODIUM (10MG) 10 MG TABLET PO SCH (08:45)
[2022-11-17] MEDS: DOCUSATE SODIUM 100 MG CAPSULE PO SCH ×2 (08:45→17:14)
[2022-11-17] MEDS: Z GUARD REMEDY 4 OZ OINT TP SCH ×2 (08:45→20:24)
[2022-11-17] MEDS: HYDROCHLOROTHIAZIDE 25 MG TABLET PO SCH (08:46)
[2022-11-17] MEDS ORDERED: BENZTROPINE MESYLATE (2MG/2ML) 2 MG/2 ML AMPUL IM ONE (11:30)
[2022-11-17] MEDS ORDERED: MENTHOL/CETYLPYRD (CEPACOL) 1 LOZ LOZENGE PO PRN (12:30)
[2022-11-17 16:00] VITALS: BP 155/59
[2022-11-17] MEDS: BENZTROPINE MESYLATE (1 MG) 1 MG TABLET PO SCH ×2 (17:13→21:25)
[2022-11-17 17:29] LABS: BASOPHILS # (AUTO) 0.2 K/uL (0.0-0.2); BASOPHILS % (AUTO) 2.1 % (0.0-2.0); EOSINOPHILS % (AUTO) 0.9 % (0.0-6.0); HEMATOCRIT 43 % (33-45); HEMOGLOBIN 13.4 g/dL (11.5-14.8); LYMPHOCYTES # (AUTO) 1.4 K/uL (0.8-4.8); LYMPHOCYTES % (AUTO) 12.8 % (20.0-44.0); MEAN CORPUSCULAR HGB CONC 32 g/dl (31.0-36.0); MEAN CORPUSCULAR VOLUME 78 fL (82-100); MONOCYTES # (AUTO) 1.3 K/uL (0.1-1.30); NEUTROPHILS # (AUTO) 7.6 K/uL (1.8-8.9); NEUTROPHILS % (AUTO) 72.2 % (43.0-81.0); PLATELET COUNT (AUTO) 235 K/uL (150-450); RED BLOOD CELL COUNT(AUTO) 5.43 MIL/uL (4.0-5.2); WHITE BLOOD COUNT (AUTO) 10.6 K/uL (4.3-11.0)
[2022-11-17 17:41] LABS: ALBUMIN 2.1 g/dL (3.4-5.0); BILIRUBIN,TOTAL 0.4 mg/dL (0.2-1.0); CALCIUM, SERUM 9.2 mg/dL (8.5-10.1); CREATININE 0.9 mg/dL (0.6-1.3); POTASSIUM 4.3 mmol/L (3.5-5.1); TOTAL PROTEIN, SERUM 6.5 g/dL (6.4-8.2)
--- NOTE | 2022-11-17 18:00 | NUR ---
NURSE NOTES: DR RODRÍGUEZ CALLED TO ASK ABOUT PTS STATUS. ORDERED. COVID, STREP, CBC, CMP. COVID AND STREP DONE AT THIS TIME. PT SHERRY WELL. WILL ENDORSE TO PM SHIFT.
[2022-11-17] MEDS: INSULIN REGULAR, HUMAN 100 UNIT/ML 3 ML VIAL SQ PRN (18:23)
[2022-11-17] MEDS ORDERED: BENZTROPINE MESYLATE (1 MG) 1 MG TABLET PO ONE (19:00)
[2022-11-17] MEDS: ACETAMINOPHEN 325 MG TABLET PO PRN (19:39)
[2022-11-17 20:00] VITALS: BP_SYST 136; BP_SYST 137; BP_DIAS 51; BP_DIAS 61
--- NOTE | 2022-11-17 20:15 | NUR ---
GPS RN NOTES BUDDHIST MONK JONES DUKES IN THE UNIT INFORMED HER ABOUT PT'S TEMP OF 100.9. SHE STATED LET'S WAIT FOR THE STREP CULTURE RESULT. TYLENOL 650MG PO GIVEN @1938. WILL CONTINUE TO MONITOR PATIENT CLOSELY. CHARGE NURSE AWARE. Addendum: 11/17/22 at 2046 by NIKKI FERNANDEZ RN PT'S AT BEDSIDE NOTIFIED REGARDING PT'S CURRENT CONDITION. Addendum: 11/18/22 at 032 by NIKKI FERNANDEZ RN 2010 - RECHECKED TEMP. 98.3
[2022-11-17] MEDS: SENNOSIDES 8.6 MG TABLET PO SCH (21:25)
[2022-11-17 21:36] LABS: BAND % (MANUAL) 1 % (0.0-5.0); EOSINOPHILS % (MANUAL) 1 % (0-4); LYMPHOCYTES % (MANUAL) 21 % (16-48); MONOCYTES % (MANUAL) 15 % (0-11.0); NEUTROPHILS % (MANUAL) 62 (42-76)
[2022-11-17] MEDS ORDERED: risperiDONE 1 MG TABLET PO SCH (22:00)
--- NOTE | 2022-11-18 06:57 | NUR ---
[facility]PS RN NOTES PATIENT IN BED ASLEEP BUT AROUSES EASILY. ALERT AND ORIENTED X1-2, PATIENT IS AFEBRILE. NO S/SX OF ACUTE DISTRESS NOTED. PATIENT REMAINS CONFUSED, TALKING TO SELF. TURNED AND REPOSITIONED PT PER PROTOCOL. WILL ENDORSE TO DAY SHIFT FOR CONTINUITY OF CARE.
[2022-11-18] MEDS: BLOOD SUGAR DIAGNOSTIC 1 EACH STRIP IN SCH ×2 (07:45→17:00)
[2022-11-18 08:00] VITALS: BP 159/68
[2022-11-18] MEDS: INSULIN REGULAR, HUMAN 100 UNIT/ML 3 ML VIAL SQ PRN ×2 (08:01→17:50)
[2022-11-18] MEDS: NIFEDIPINE XL 60 MG TAB.ER.24 PO SCH (09:29)
[2022-11-18] MEDS: METOPROLOL SUCCINATE 25 MG TAB.SR.24H PO SCH (09:29)
[2022-11-18] MEDS: MONTELUKAST SODIUM (10MG) 10 MG TABLET PO SCH (09:29)
[2022-11-18] MEDS: PANTOPRAZOLE 40 MG TABLET.DR PO SCH (09:30)
[2022-11-18] MEDS: DOCUSATE SODIUM 100 MG CAPSULE PO SCH ×2 (09:30→18:22)
[2022-11-18] MEDS: DONEPEZIL 5 MG TABLET PO SCH (09:30)
[2022-11-18] MEDS: LOSARTAN POTASSIUM 50 MG TABLET PO SCH (09:30)
[2022-11-18] MEDS: DIVALPROEX SODIUM 125 MG CAP.SPRINK PO SCH ×3 (09:30→18:23)
[2022-11-18] MEDS: hydrALAZINE HCL 50 MG TABLET PO SCH (09:31)
[2022-11-18] MEDS: HYDROCHLOROTHIAZIDE 25 MG TABLET PO SCH (09:31)
[2022-11-18] MEDS: MEMANTINE HCL 5 MG TABLET PO SCH ×2 (09:31→18:23)
[2022-11-18] MEDS: Z GUARD REMEDY 4 OZ OINT TP SCH ×2 (09:34→21:21)
[2022-11-18] MEDS: BENZTROPINE MESYLATE (1 MG) 1 MG TABLET PO SCH ×3 (09:34→21:22)
[2022-11-18 16:04] VITALS: BP 155/99
[2022-11-18] MEDS ORDERED: risperiDONE 1 MG TABLET PO SCH (18:00)
[2022-11-18] MEDS: risperiDONE 0.25 MG TABLET PO SCH (18:22)
[2022-11-18 20:00] VITALS: BP 135/57
[2022-11-18 20:54] VITALS: BP 135/57
[2022-11-18] MEDS: SENNOSIDES 8.6 MG TABLET PO SCH (21:21)
[2022-11-18] MEDS: risperiDONE 1 MG TABLET PO SCH (21:22)
--- NOTE | 2022-11-19 04:26 | NUR ---
Closing Notes: Alert good eye contact D/T only she can speak Montenegrin not able to see if she knew where she was and why.....she would talk to me in her Language going on and on, by some of her hand jesters I counld tell she was angry or appeared happy. She is cooperative and meication compliant her skin is warm and dry bed alarm for her safety and near the [facility] station She cried out loudly X2 last night 2AM + 4AM apparently bad dream she was easily calmed Slept 10 hours
[2022-11-19] MEDS: BLOOD SUGAR DIAGNOSTIC 1 EACH STRIP IN SCH ×2 (07:35→17:18)
[2022-11-19 08:00] VITALS: BP 141/82
[2022-11-19] MEDS: MONTELUKAST SODIUM (10MG) 10 MG TABLET PO SCH ×2 (08:35→09:00)
[2022-11-19] MEDS: risperiDONE 0.25 MG TABLET PO SCH ×3 (08:35→16:44)
[2022-11-19] MEDS: MEMANTINE HCL 5 MG TABLET PO SCH ×3 (08:35→16:44)
[2022-11-19] MEDS: DIVALPROEX SODIUM 125 MG CAP.SPRINK PO SCH ×4 (08:36→16:44)
[2022-11-19] MEDS: NIFEDIPINE XL 60 MG TAB.ER.24 PO SCH ×2 (08:36→09:00)
[2022-11-19] MEDS: DONEPEZIL 5 MG TABLET PO SCH ×2 (08:36→09:00)
[2022-11-19] MEDS: HYDROCHLOROTHIAZIDE 25 MG TABLET PO SCH ×2 (08:37→09:00)
[2022-11-19] MEDS: DOCUSATE SODIUM 100 MG CAPSULE PO SCH ×3 (08:37→16:44)
[2022-11-19] MEDS: BENZTROPINE MESYLATE (1 MG) 1 MG TABLET PO SCH ×4 (08:37→21:54)
[2022-11-19] MEDS: LOSARTAN POTASSIUM 50 MG TABLET PO SCH ×2 (08:38→09:00)
[2022-11-19] MEDS: hydrALAZINE HCL 50 MG TABLET PO SCH ×2 (08:38→09:00)
[2022-11-19] MEDS: GLUCERNA SHAKE 237 ML CAN PO SCH ×2 (08:39→09:00)
[2022-11-19] MEDS: Z GUARD REMEDY 4 OZ OINT TP SCH ×2 (08:39→21:53)
[2022-11-19] MEDS: PANTOPRAZOLE 40 MG TABLET.DR PO SCH ×2 (08:39→09:00)
[2022-11-19] MEDS: METOPROLOL SUCCINATE 25 MG TAB.SR.24H PO SCH (09:00)
[2022-11-19 16:00] VITALS: BP 132/57
[2022-11-19] MEDS: INSULIN REGULAR, HUMAN 100 UNIT/ML 3 ML VIAL SQ PRN (18:47)
[2022-11-19 19:56] VITALS: BP 132/69
[2022-11-19] MEDS: SENNOSIDES 8.6 MG TABLET PO SCH (21:54)
[2022-11-19] MEDS: risperiDONE 1 MG TABLET PO SCH (21:54)
[2022-11-20 06:40] LABS: BASOPHILS # (AUTO) 0.1 K/uL (0.0-0.2); EOSINOPHILS % (AUTO) 2.9 % (0.0-6.0); HEMATOCRIT 39 % (33-45); HEMOGLOBIN 12.4 g/dL (11.5-14.8); LYMPHOCYTES # (AUTO) 1.7 K/uL (0.8-4.8); LYMPHOCYTES % (AUTO) 24.4 % (20.0-44.0); MEAN CORPUSCULAR HGB CONC 32 g/dl (31.0-36.0); MEAN CORPUSCULAR VOLUME 77 fL (82-100); MONOCYTES # (AUTO) 1.1 K/uL (0.1-1.30); MONOCYTES % (AUTO) 15.4 % (2.0-12.0); NEUTROPHILS % (AUTO) 56.3 % (43.0-81.0); PLATELET COUNT (AUTO) 256 K/uL (150-450); RED BLOOD CELL COUNT(AUTO) 5.08 MIL/uL (4.0-5.2); WHITE BLOOD COUNT (AUTO) 7.1 K/uL (4.3-11.0)
[2022-11-20 07:05] LABS: ALBUMIN 2.1 g/dL (3.4-5.0); BILIRUBIN,TOTAL 0.3 mg/dL (0.2-1.0); CALCIUM, SERUM 9.6 mg/dL (8.5-10.1); CREATININE 0.9 mg/dL (0.6-1.3); POTASSIUM 3.3 mmol/L (3.5-5.1); TOTAL PROTEIN, SERUM 6.3 g/dL (6.4-8.2)
[2022-11-20] MEDS: BLOOD SUGAR DIAGNOSTIC 1 EACH STRIP IN SCH ×2 (07:51→17:05)
[2022-11-20 08:00] VITALS: BP 150/64
[2022-11-20] MEDS: DOCUSATE SODIUM 100 MG CAPSULE PO SCH ×2 (08:04→16:08)
[2022-11-20] MEDS: hydrALAZINE HCL 50 MG TABLET PO SCH (08:05)
[2022-11-20] MEDS: risperiDONE 0.25 MG TABLET PO SCH ×2 (08:05→16:08)
[2022-11-20] MEDS: PANTOPRAZOLE 40 MG TABLET.DR PO SCH (08:05)
[2022-11-20] MEDS: METOPROLOL SUCCINATE 25 MG TAB.SR.24H PO SCH (08:06)
[2022-11-20] MEDS: NIFEDIPINE XL 60 MG TAB.ER.24 PO SCH (08:07)
[2022-11-20] MEDS: DIVALPROEX SODIUM 125 MG CAP.SPRINK PO SCH ×3 (08:07→16:08)
[2022-11-20] MEDS: LOSARTAN POTASSIUM 50 MG TABLET PO SCH (08:07)
[2022-11-20] MEDS: DONEPEZIL 5 MG TABLET PO SCH (08:07)
[2022-11-20] MEDS: BENZTROPINE MESYLATE (1 MG) 1 MG TABLET PO SCH ×3 (08:07→21:11)
[2022-11-20] MEDS: MEMANTINE HCL 5 MG TABLET PO SCH ×2 (08:07→16:08)
[2022-11-20] MEDS: HYDROCHLOROTHIAZIDE 25 MG TABLET PO SCH (08:08)
[2022-11-20] MEDS: MONTELUKAST SODIUM (10MG) 10 MG TABLET PO SCH (08:08)
[2022-11-20] MEDS: INSULIN REGULAR, HUMAN 100 UNIT/ML 3 ML VIAL SQ PRN ×2 (08:15→17:07)
[2022-11-20] MEDS ORDERED: POTASSIUM CHLORIDE 20 MEQ POWDER PACKET PO ONE (09:00)
[2022-11-20] MEDS: GLUCERNA SHAKE 237 ML CAN PO SCH (09:01)
[2022-11-20] MEDS: Z GUARD REMEDY 4 OZ OINT TP SCH ×2 (09:28→21:11)
--- NOTE | 2022-11-20 10:00 | NUR ---
RN Notes: Received pt. asleep in bed, breathing is even and unlabored. Pt. ate 50% of breakfast and due meds given BS ac breakfast is 177 and 3 units of Regular Insulin given. Potassium is 3.3 of Potassium Chloride of 20 meq powder packet given. Morning care rendered and reposition q2hrs. Pt. had PT and pt. is cooperative. No distress and no agitation noted. Will continue to monitor for safety.
[2022-11-20 16:00] VITALS: BP 115/67
[2022-11-20 20:00] VITALS: BP 146/72
[2022-11-20] MEDS: risperiDONE 1 MG TABLET PO SCH (21:12)
[2022-11-20] MEDS: SENNOSIDES 8.6 MG TABLET PO SCH (21:12)
--- NOTE | 2022-11-21 06:03 | NUR ---
RN NOTE:-PATIENT IN BED ASLEEP BUT AROUSES EASILY. MED COMPLIANT .ALERT AND ORIENTED X1-2, PATIENT IS AFEBRILE. NO S/SX OF ACUTE DISTRESS NOTED. PATIENT REMAINS CONFUSED, TALKING TO SELF. TURNED AND REPOSITIONED PT PER PROTOCOL. WILL ENDORSE TO DAY SHIFT FOR CONTINUITY OF CARE
[2022-11-21] MEDS: BLOOD SUGAR DIAGNOSTIC 1 EACH STRIP IN SCH (07:49)
[2022-11-21 08:00] VITALS: BP 124/66
--- NOTE | 2022-11-21 08:05 | NUR ---
SHANNAN Discharge Note: Patient will return back to [facility] located [address] [place] [address]; ([phone]). Please arrange transportation at 1PM. SHANNAN spoke with Vishnu Hollis ([phone]) who stated that pt can return back today. Pts Leticia ([phone]) is aware and agreeable of dc. Pt is alert and oriented x1. Pt denies suicidal or homicidal ideation. Pt denies visual/auditory hallucination. Patient will continue to follow-up with (psychiatrist) Dr. Nguyen [address] [address]; ([phone]) and will follow up with (Store Keeper) Dr. Liao located at [address] [place] [address]; ([phone]). Pt presents with euthymic mood and congruent affect.
[2022-11-21] MEDS: Z GUARD REMEDY 4 OZ OINT TP SCH (09:28)
[2022-11-21] MEDS: MONTELUKAST SODIUM (10MG) 10 MG TABLET PO SCH (09:32)
[2022-11-21] MEDS: DOCUSATE SODIUM 100 MG CAPSULE PO SCH (09:32)
[2022-11-21] MEDS: MEMANTINE HCL 5 MG TABLET PO SCH (09:32)
[2022-11-21] MEDS: DONEPEZIL 5 MG TABLET PO SCH (09:33)
[2022-11-21] MEDS: risperiDONE 0.25 MG TABLET PO SCH (09:33)
[2022-11-21] MEDS: GLUCERNA SHAKE 237 ML CAN PO SCH (09:35)
[2022-11-21] MEDS: PANTOPRAZOLE 40 MG TABLET.DR PO SCH (09:36)
[2022-11-21] MEDS: NIFEDIPINE XL 60 MG TAB.ER.24 PO SCH (09:37)
[2022-11-21] MEDS: DIVALPROEX SODIUM 125 MG CAP.SPRINK PO SCH ×2 (09:37→13:03)
[2022-11-21] MEDS: BENZTROPINE MESYLATE (1 MG) 1 MG TABLET PO SCH (09:37)
[2022-11-21] MEDS: hydrALAZINE HCL 50 MG TABLET PO SCH (09:38)
[2022-11-21] MEDS: LOSARTAN POTASSIUM 50 MG TABLET PO SCH (09:38)
[2022-11-21] MEDS: METOPROLOL SUCCINATE 25 MG TAB.SR.24H PO SCH (09:39)
[2022-11-21 09:40] VITALS: BP 124/66
[2022-11-21] MEDS: HYDROCHLOROTHIAZIDE 25 MG TABLET PO SCH (09:40)
--- NOTE | 2022-11-21 13:15 | NUR ---
GPS/RN PT LEFT TO to [facility] located [address] [place] [address]; ([phone]) VIA AMBULANCE. VSS. NO ACUTE DISTRESS. NO SI /HI AT THE TIME OF DISCHARGE. PROPERTY RETURNED. REPORT GIVEN TO NAT AT THE FACILITY. PT REFUSED PICTURES AND TO SIGN D/C PAPERWORK
== END 2022-11-21 13:15 | DRG 885 ==
LOC: ER 16:12 → GPS 19:59
PROVIDERS: ADMIT Psychiatry & Neurology Psychosomatic Medicine; ATTEND Internal Medicine
DX: F29 Unspecified psychosis not due to a substance or known physiological condition (principal); E43 Unspecified severe protein-calorie malnutrition; I11.0 Hypertensive heart disease with heart failure; N17.0 Acute kidney failure with tubular necrosis; F03.94 Unspecified dementia, unspecified severity, with anxiety; N39.0 Urinary tract infection, site not specified; I50.9 Heart failure, unspecified; E11.9 Type 2 diabetes mellitus without complications; E88.09 Other disorders of plasma-protein metabolism, not elsewhere classified; Z20.822 Contact with and (suspected) exposure to COVID-19; Z73.6 Limitation of activities due to disability; M62.81 Muscle weakness (generalized); F41.9 Anxiety disorder, unspecified; Z68.34 Body mass index [BMI] 34.0-34.9, adult; F31.9 Bipolar disorder, unspecified; B96.20 Unspecified Escherichia coli [E. coli] as the cause of diseases classified elsewhere
CPT/HCPCS: 36415; 70450-TC; 80048-TC; 80053-TC; 80061-TC; 80076-TC; 80164-TC; 81001; 82565-TC; 82962-TC; 85025-TC; 86403-TC; 87081-TC; 87086-TC; 97110-TC; 97116-TC; 97530-TC; C9803; G0480; J0515; J1815; J2060; J3490; J7030

== ENCOUNTER 2023-02-12 22:53 | Inpatient (IN) | payer MEDICARE, OTHER ==
[~2023-02-12] VITALS: Ht 157.5 cm; Wt 73.5 kg
[~2023-02-12 22:53] MED LIST: ACET-2605 PO; ACET-868 PO; ASCO-352 PO; BISA10SU11 RC; DIVA-76 PO; DOCU-141 PO; DONE5TAB34 PO; ERGO500093 PO; FLUT1BLS INH; FURO20TA4 PO; GLUC1KIT IM; GUAI400T61 PO; HYDR-4077 PO; HYDR12.55 PO; ICOS1CAP PO; IRBE150T28 PO; LORA-258 PO; MAGN400O6 PO; MEMA28CA5 PO; METO25TA3 PO; MONT10TA22 PO; MULT-447 PO; NA P133E RC; NIFE-34 PO; PANT40TA49 PO; POTA-165 PO; RISP0.2515 PO; SENN-261 PO; SERT25TA5 PO
[2023-02-13 00:43] LABS: APPEARANCE,URINE SLIGHTLY CLOUDY (CLEAR); BILIRUBIN,URINE 1+ (NEGATIVE); BLOOD, URINE NEGATIVE Ery/uL (NEGATIVE); COLOR,URINE DARK YELLOW (YELLOW); KETONES,URINE NEGATIVE (NEGATIVE); LEUKOCYTE ESTERASE ,URINE NEGATIVE (NEGATIVE); NITRITE, URINE NEGATIVE (NEGATIVE); PH,URINE 5.5 (5.0-8.0); PROTEIN,URINE NEGATIVE (NEGATIVE); UGLUCOSE NEGATIVE (NEGATIVE); UROBILINOGEN,URINE 0.2 EU/dL (0.2)
[2023-02-13 01:02] LABS: AMPHETAMINE, URINE NEGATIVE (NEGATIVE); BARBITURATE, URINE NEGATIVE (NEGATIVE); BENZODIAZEPINE, URINE NEGATIVE (NEGATIVE); CANNABINOID, URINE NEGATIVE (NEGATIVE); COCCAINE, URINE NEGATIVE (NEGATIVE); OPIATE, URINE NEGATIVE (NEGATIVE); PHENCYCLIDINE SCREEN,URINE NEGATIVE (NEGATIVE)
[2023-02-13 02:00] LABS: ALCOHOL, BLOOD < 3 mg/dL (0-10)
[2023-02-13 02:01] LABS: ACETAMINOPHEN <10 ug/ml (10-30); SALICYLATE < 2.3 mg/dL (2.8-20.0)
[2023-02-13] MEDS ORDERED: MEMA10TA PO (07:26)
[2023-02-13] MEDS ORDERED: METO100T14 PO (07:26)
[2023-02-13] MEDS ORDERED: SITA1TAB2 PO (07:26)
[2023-02-13] MEDS ORDERED: INSU100V3 SQ (07:26)
[2023-02-13] MEDS ORDERED: DIVA125C5 PO (07:26)
[2023-02-13] MEDS ORDERED: CIPR-262 PO (07:26)
[2023-02-13] MEDS ORDERED: BENZ0.5T43 PO (07:26)
[2023-02-13] MEDS ORDERED: LOSA50TA39 PO (07:26)
[2023-02-13] MEDS ORDERED: MAG30ORA PO (07:26)
[2023-02-13] MEDS ORDERED: RISP0.2515 PO (07:26)
[2023-02-13] MEDS ORDERED: MAG HYDROX/AL HYDROX/SIMETH 30 ML UDC PO PRN ×2 (13:00→17:00)
[2023-02-13] MEDS ORDERED: TEMAZEPAM 7.5 MG CAPSULE PO PRN (13:00)
[2023-02-13] MEDS ORDERED: ACETAMINOPHEN 325 MG TABLET PO PRN ×2 (13:00→17:00)
[2023-02-13] MEDS ORDERED: MAGNESIUM HYDROXIDE 30 ML UDC PO PRN ×2 (13:00→17:00)
[2023-02-13] MEDS ORDERED: BLOOD SUGAR DIAGNOSTIC 1 EACH STRIP IN ONE (13:00)
[2023-02-13] MEDS ORDERED: LORAZEPAM 0.5 MG TABLET PO PRN (13:00)
[2023-02-13 13:34] VITALS: BP 163/60; TEMP 98.4; O2SAT 95
[2023-02-13 16:00] VITALS: BP 149/67; TEMP 98.6; O2SAT 95
[2023-02-13] MEDS ORDERED: BISACODYL SUPP (10 MG) 10 MG/SUPP.RECT SUPP.RECT RC PRN (17:00)
[2023-02-13] MEDS ORDERED: ACETAMINOPHEN ES 500 MG TABLET PO PRN (17:00)
[2023-02-13] MEDS ORDERED: NA PHOS,M-B/NA PHOS,DI-BA 1 EA ENEMA RC PRN (17:00)
[2023-02-13] MEDS: MEMANTINE HCL 5 MG TABLET PO SCH (18:09)
[2023-02-13] MEDS: risperiDONE 1 MG TABLET PO SCH ×2 (18:09→21:40)
[2023-02-13] MEDS: DIVALPROEX SODIUM 125 MG CAP.SPRINK PO SCH (18:09)
[2023-02-13] MEDS: DOCUSATE SODIUM 100 MG CAPSULE PO SCH (18:10)
[2023-02-13 20:00] VITALS: BP 103/76; TEMP 98.7; O2SAT 95
[2023-02-13] MEDS: SENNOSIDES 8.6 MG TABLET PO SCH (21:40)
[2023-02-14 07:31] LABS: ALBUMIN 2.1 g/dL (3.4-5.0); CALCIUM, SERUM 8.7 mg/dL (8.5-10.1); CREATININE 0.7 mg/dL (0.6-1.3); POTASSIUM 3.9 mmol/L (3.5-5.1); TOTAL PROTEIN, SERUM 5.9 g/dL (6.4-8.2)
[2023-02-14 08:00] VITALS: BP 95/82; TEMP 97.8; O2SAT 95
[2023-02-14] MEDS: LOSARTAN POTASSIUM 50 MG TABLET PO SCH (08:10)
[2023-02-14] MEDS: hydrALAZINE HCL 50 MG TABLET PO SCH (08:10)
[2023-02-14] MEDS: METOPROLOL SUCCINATE 50 MG TAB.SR.24H PO SCH (08:11)
[2023-02-14] MEDS: NIFEDIPINE XL 60 MG TAB.ER.24 PO SCH (08:11)
[2023-02-14] MEDS: HYDROCHLOROTHIAZIDE 25 MG TABLET PO SCH (08:11)
[2023-02-14] MEDS: METFORMIN 500 MG TABLET PO SCH ×2 (08:15→16:25)
[2023-02-14] MEDS: MONTELUKAST SODIUM (10MG) 10 MG TABLET PO SCH (08:15)
[2023-02-14] MEDS: DOCUSATE SODIUM 100 MG CAPSULE PO SCH ×2 (08:15→16:26)
[2023-02-14] MEDS: risperiDONE 1 MG TABLET PO SCH ×3 (08:15→21:30)
[2023-02-14] MEDS: PANTOPRAZOLE 40 MG TABLET.DR PO SCH (08:15)
[2023-02-14] MEDS: LINAGLIPTIN 5 MG TABLET PO SCH (08:15)
[2023-02-14] MEDS: MEMANTINE HCL 5 MG TABLET PO SCH ×2 (08:15→16:26)
[2023-02-14] MEDS: DONEPEZIL 5 MG TABLET PO SCH (08:15)
[2023-02-14] MEDS: DIVALPROEX SODIUM 125 MG CAP.SPRINK PO SCH ×3 (08:16→16:26)
[2023-02-14 16:00] VITALS: BP 139/64; TEMP 97.7; O2SAT 96
[2023-02-14 20:00] VITALS: BP 135/55; TEMP 98.2; O2SAT 97
[2023-02-14] MEDS: MUPIROCIN OINT 2% 22 GM TUBE NS SCH (21:30)
[2023-02-14] MEDS: SENNOSIDES 8.6 MG TABLET PO SCH (21:30)
[2023-02-15 08:00] VITALS: BP 129/51; TEMP 98; O2SAT 94
[2023-02-15] MEDS: DOCUSATE SODIUM 100 MG CAPSULE PO SCH ×2 (08:07→17:00)
[2023-02-15] MEDS: risperiDONE 1 MG TABLET PO SCH (08:07)
[2023-02-15] MEDS: PANTOPRAZOLE 40 MG TABLET.DR PO SCH (08:07)
[2023-02-15] MEDS: LINAGLIPTIN 5 MG TABLET PO SCH (08:07)
[2023-02-15] MEDS: METFORMIN 500 MG TABLET PO SCH ×2 (08:07→17:00)
[2023-02-15] MEDS: DONEPEZIL 5 MG TABLET PO SCH (08:07)
[2023-02-15] MEDS: DIVALPROEX SODIUM 125 MG CAP.SPRINK PO SCH ×2 (08:07→12:43)
[2023-02-15] MEDS: MONTELUKAST SODIUM (10MG) 10 MG TABLET PO SCH (08:07)
[2023-02-15] MEDS: MEMANTINE HCL 5 MG TABLET PO SCH ×2 (08:07→17:00)
[2023-02-15] MEDS: METOPROLOL SUCCINATE 50 MG TAB.SR.24H PO SCH (08:08)
[2023-02-15] MEDS: NIFEDIPINE XL 60 MG TAB.ER.24 PO SCH (08:08)
[2023-02-15] MEDS: HYDROCHLOROTHIAZIDE 25 MG TABLET PO SCH (08:09)
[2023-02-15] MEDS: MUPIROCIN OINT 2% 22 GM TUBE NS SCH (08:12)
[2023-02-15] MEDS: hydrALAZINE HCL 50 MG TABLET PO SCH (08:12)
[2023-02-15] MEDS: LOSARTAN POTASSIUM 50 MG TABLET PO SCH (08:13)
[2023-02-15 12:09] LABS: BASOPHILS % (AUTO) 0.5 % (0.0-2.0); EOSINOPHILS # (AUTO) 0.1 K/uL (0.0-0.7); EOSINOPHILS % (AUTO) 1.4 % (0.0-6.0); HEMATOCRIT 37 % (33-45); HEMOGLOBIN 11.7 g/dL (11.5-14.8); LYMPHOCYTES # (AUTO) 2.1 K/uL (0.8-4.8); LYMPHOCYTES % (AUTO) 22.4 % (20.0-44.0); MEAN CORPUSCULAR HEMOGLOBIN 24 PG (26.0-33.0); MEAN CORPUSCULAR HGB CONC 32 g/dl (31.0-36.0); MEAN CORPUSCULAR VOLUME 74 fL (82-100); MONOCYTES # (AUTO) 1.2 K/uL (0.1-1.30); MONOCYTES % (AUTO) 12.9 % (2.0-12.0); NEUTROPHILS % (AUTO) 62.8 % (43.0-81.0); PLATELET COUNT (AUTO) 225 K/uL (150-450); RED BLOOD CELL COUNT(AUTO) 4.96 MIL/uL (4.0-5.2); RED CELL DISTRIBUTION WIDTH 15.9 % (11.5-15.0); WHITE BLOOD COUNT (AUTO) 9.5 K/uL (4.3-11.0)
[2023-02-15 12:55] LABS: CALCIUM, SERUM 8.8 mg/dL (8.5-10.1); CREATININE 0.8 mg/dL (0.6-1.3); POTASSIUM 3.8 mmol/L (3.5-5.1)
[2023-02-15 13:04] LABS: BILIRUBIN,TOTAL 1.1 mg/dL (0.2-1.0); MAGNESIUM 1.8 mg/dL (1.8-2.4); TOTAL PROTEIN, SERUM 6.1 g/dL (6.4-8.2)
[2023-02-15 14:30] LABS: AMYLASE 30 U/L (25-115); LIPASE 44 U/L (73-393)
[2023-02-15 17:12] VITALS: BP 127/61; TEMP 97.9; O2SAT 95
[2023-02-15] MEDS ORDERED: AZITHROMYCIN 250 MG TABLET PO SCH (19:00)
[2023-02-16] MEDS ORDERED: MUPI22OI7 NS (07:42)
[2023-02-16] MEDS ORDERED: METF-440 PO (07:42)
[2023-02-16] MEDS ORDERED: LINA5TAB PO (07:42)
[2023-02-16] MEDS ORDERED: AZIT500T4 PO (07:42)
[2023-02-16] MEDS ORDERED: METO-358 PO (07:42)
[2023-02-16] MEDS ORDERED: DIVALPROEX SODIUM 125 MG CAP.SPRINK PO SCH (08:00)
[2023-02-16] MEDS ORDERED: risperiDONE 0.25 MG TABLET PO SCH (09:00)
== END 2023-02-15 20:49 | disposition short-term general hospital (02) | DRG 885 ==
LOC: ER 23:03 → GPS 02-13 11:57
PROVIDERS: ADMIT Psychiatry & Neurology Psychosomatic Medicine; ATTEND Nurse Practitioner Acute Care
DX: F29 Unspecified psychosis not due to a substance or known physiological condition (principal); I11.0 Hypertensive heart disease with heart failure; G93.49 Other encephalopathy; F02.84 Dementia in other diseases classified elsewhere, unspecified severity, with anxiety; F02.83 Dementia in other diseases classified elsewhere, unspecified severity, with mood disturbance; E11.9 Type 2 diabetes mellitus without complications; E66.9 Obesity, unspecified; I50.9 Heart failure, unspecified; I25.10 Atherosclerotic heart disease of native coronary artery without angina pectoris; Z87.440 Personal history of urinary (tract) infections; Z73.6 Limitation of activities due to disability; Z68.29 Body mass index [BMI] 29.0-29.9, adult; F41.9 Anxiety disorder, unspecified; G30.9 Alzheimer's disease, unspecified; F25.9 Schizoaffective disorder, unspecified; F31.9 Bipolar disorder, unspecified; Z20.822 Contact with and (suspected) exposure to COVID-19
CPT/HCPCS: 36415; 70450-TC; 71045-TC; 80053-TC; 80061-TC; 82150-TC; 82962-TC; 83690-TC; 83735-TC; 85025-TC; 86713; 87081-TC; C9803; G0480

== ENCOUNTER 2023-02-15 20:20 | Inpatient (IN) | payer MEDICARE, OTHER ==
[~2023-02-15] VITALS: Ht 152.4 cm; Wt 71.9 kg
[~2023-02-15 20:20] MED LIST changes: -ASCO-352 PO; +BENZ0.5T43 PO; +CIPR-262 PO; -DIVA-76 PO; +DIVA125C5 PO; -ERGO500093 PO; -FLUT1BLS INH; -FURO20TA4 PO; -GUAI400T61 PO; -ICOS1CAP PO; +INSU100V3 SQ; -IRBE150T28 PO; -LORA-258 PO; +LOSA50TA39 PO; +MAG30ORA PO; +MEMA10TA PO; -MEMA28CA5 PO; +METO100T14 PO; -METO25TA3 PO; -MULT-447 PO; -POTA-165 PO; -SERT25TA5 PO; +SITA1TAB2 PO
[2023-02-15] MEDS ORDERED: ACETAMINOPHEN ES 500 MG TABLET PO PRN (21:30)
[2023-02-15] MEDS ORDERED: BISACODYL SUPP (10 MG) 10 MG/SUPP.RECT SUPP.RECT RC PRN ×2 (21:30→23:00)
[2023-02-15] MEDS ORDERED: ACETAMINOPHEN 325 MG TABLET PO PRN ×2 (21:30→23:00)
[2023-02-15] MEDS ORDERED: MAGNESIUM HYDROXIDE 30 ML UDC PO PRN ×2 (21:30→23:00)
[2023-02-15] MEDS ORDERED: MAG HYDROX/AL HYDROX/SIMETH 30 ML UDC PO PRN ×3 (21:30→23:00)
[2023-02-15] MEDS ORDERED: NA PHOS,M-B/NA PHOS,DI-BA 1 EA ENEMA RC PRN ×2 (21:30→23:00)
[2023-02-15] MEDS: SENNOSIDES 8.6 MG TABLET PO SCH (22:00)
[2023-02-15] MEDS ORDERED: ONDANSETRON HCL/PF 4 MG/2 ML VIAL IVP PRN (23:00)
[2023-02-15] MEDS ORDERED: DEXTROSE 50%-WATER 50 ML DISP.SYRIN IV PRN (23:00)
[2023-02-15] MEDS ORDERED: Z GUARD REMEDY 4 OZ OINT TP PRN (23:00)
[2023-02-16] VITALS: BP 135/64; TEMP 99.1; O2SAT 96
[2023-02-16] MEDS ORDERED: AZITHROMYCIN 250 MG TABLET PO SCH
[2023-02-16 00:20] VITALS: BP 135/64; TEMP 99.9; O2SAT 96
[2023-02-16] MEDS ORDERED: AZITHROMYCIN 500 MG VIAL ONE (00:48)
[2023-02-16] MEDS: IV NS 0.9% 1,000 ML IV PRN ×2 (00:52→17:13)
[2023-02-16] MEDS: AZITHROMYCIN 500 MG in IV D5W 250 ML IV SCH ×2 (01:04→21:34)
[2023-02-16 05:04] VITALS: BP 128/95; TEMP 98.8; O2SAT 95
[2023-02-16 06:18] LABS: BASOPHILS % (AUTO) 0.4 % (0.0-2.0); EOSINOPHILS # (AUTO) 0.1 K/uL (0.0-0.7); EOSINOPHILS % (AUTO) 0.4 % (0.0-6.0); HEMATOCRIT 37 % (33-45); HEMOGLOBIN 11.5 g/dL (11.5-14.8); LYMPHOCYTES # (AUTO) 2.9 K/uL (0.8-4.8); LYMPHOCYTES % (AUTO) 24.1 % (20.0-44.0); MEAN CORPUSCULAR HEMOGLOBIN 24 PG (26.0-33.0); MEAN CORPUSCULAR HGB CONC 32 g/dl (31.0-36.0); MEAN CORPUSCULAR VOLUME 74 fL (82-100); MONOCYTES # (AUTO) 1.7 K/uL (0.1-1.30); NEUTROPHILS # (AUTO) 7.3 K/uL (1.8-8.9); NEUTROPHILS % (AUTO) 61.1 % (43.0-81.0); PLATELET COUNT (AUTO) 222 K/uL (150-450); RED BLOOD CELL COUNT(AUTO) 4.91 MIL/uL (4.0-5.2); RED CELL DISTRIBUTION WIDTH 15.8 % (11.5-15.0)
[2023-02-16 06:26] LABS: CARBON DIOXIDE 27 mmol/L (21-32); CHLORIDE 104 mmol/L (98-107); CREATININE 0.7 mg/dL (0.6-1.3); GLUCOSE 156 mg/dL (74-106); MAGNESIUM 1.8 mg/dL (1.8-2.4); POTASSIUM 3.8 mmol/L (3.5-5.1); SODIUM SERUM 139 mmol/L (136-145); UREA NITROGEN, BLOOD 14 mg/dL (7-18)
[2023-02-16] MEDS: BLOOD SUGAR DIAGNOSTIC 1 EACH STRIP IN SCH ×4 (06:31→22:15)
[2023-02-16] MEDS: INSULIN REGULAR, HUMAN 100 UNIT/ML 3 ML VIAL SQ PRN ×3 (06:32→21:44)
[2023-02-16 06:38] LABS: CHOLESTEROL 190 mg/dL (<200); HDL CHOLESTEROL 43 mg/dL (40-60); LDL 110 mg/dL (0-99); THYROID STIMULATING HORMONE 0.837 uIU/mL (0.358-3.74); TRIGLYCERIDES 94 mg/dL (30-150)
[2023-02-16] MEDS: PANTOPRAZOLE 40 MG TABLET.DR PO SCH (07:30)
[2023-02-16] MEDS ORDERED: PANTOPRAZOLE 40 MG TABLET.DR PO SCH ×2 (07:30)
[2023-02-16] MEDS ORDERED: AZIT500T4 PO (07:42)
[2023-02-16] MEDS ORDERED: MUPI22OI7 NS (07:42)
[2023-02-16] MEDS ORDERED: METF-440 PO (07:42)
[2023-02-16] MEDS ORDERED: LINA5TAB PO (07:42)
[2023-02-16] MEDS ORDERED: METO-358 PO (07:42)
[2023-02-16 08:00] VITALS: BP 152/55; TEMP 98; O2SAT 96
[2023-02-16] MEDS: hydrALAZINE HCL 50 MG TABLET PO SCH (08:06)
[2023-02-16] MEDS: DONEPEZIL 5 MG TABLET PO SCH (08:06)
[2023-02-16] MEDS: HYDROCHLOROTHIAZIDE 25 MG TABLET PO SCH (08:07)
[2023-02-16] MEDS: DOCUSATE SODIUM 100 MG CAPSULE PO SCH ×2 (08:07→17:04)
[2023-02-16] MEDS: BENZTROPINE MESYLATE (1 MG) 1 MG TABLET PO SCH ×2 (08:07→17:04)
[2023-02-16] MEDS: DIVALPROEX SODIUM 125 MG CAP.SPRINK PO SCH ×2 (08:07→12:00)
[2023-02-16] MEDS: LOSARTAN POTASSIUM 50 MG TABLET PO SCH (08:07)
[2023-02-16] MEDS: METFORMIN 500 MG TABLET PO SCH ×2 (08:07→17:03)
[2023-02-16] MEDS: NIFEDIPINE XL 60 MG TAB.ER.24 PO SCH (08:08)
[2023-02-16] MEDS: MEMANTINE HCL 5 MG TABLET PO SCH ×2 (08:08→17:04)
[2023-02-16] MEDS: MONTELUKAST SODIUM (10MG) 10 MG TABLET PO SCH (08:08)
[2023-02-16] MEDS: risperiDONE 0.25 MG TABLET PO SCH ×2 (08:08→12:00)
[2023-02-16] MEDS: METOPROLOL SUCCINATE 50 MG TAB.SR.24H PO SCH (08:09)
[2023-02-16] MEDS: LINAGLIPTIN 5 MG TABLET PO SCH (08:09)
[2023-02-16] MEDS ORDERED: DOCUSATE SODIUM 100 MG CAPSULE PO SCH (09:00)
[2023-02-16] MEDS ORDERED: MEMANTINE HCL 5 MG TABLET PO SCH (09:00)
[2023-02-16] MEDS ORDERED: METOPROLOL TARTRATE 25 MG TABLET PO SCH (09:00)
[2023-02-16] MEDS ORDERED: SITAGLIPTIN PHOSPHATE 50 MG TABLET PO SCH (09:00)
[2023-02-16] MEDS ORDERED: NIFEDIPINE XL 60 MG TAB.ER.24 PO SCH (09:00)
[2023-02-16] MEDS ORDERED: MONTELUKAST SODIUM (10MG) 10 MG TABLET PO SCH (09:00)
[2023-02-16] MEDS ORDERED: LOSARTAN POTASSIUM 50 MG TABLET PO SCH (09:00)
[2023-02-16] MEDS ORDERED: METFORMIN 500 MG TABLET PO SCH (09:00)
[2023-02-16] MEDS ORDERED: DONEPEZIL 5 MG TABLET PO SCH (09:00)
[2023-02-16] MEDS: MUPIROCIN OINT 2% 22 GM TUBE NS SCH ×2 (09:05→22:45)
[2023-02-16] MEDS: ENOXAPARIN SODIUM 40 MG/0.4 ML DISP.SYRIN SQ SCH (09:08)
[2023-02-16 16:00] VITALS: BP 159/68; TEMP 98.8; O2SAT 96
[2023-02-16 20:00] VITALS: BP 167/68; TEMP 101.3; O2SAT 97
[2023-02-16] MEDS: SENNOSIDES 8.6 MG TABLET PO SCH (21:34)
[2023-02-16] MEDS ORDERED: risperiDONE 0.25 MG TABLET PO SCH (22:00)
[2023-02-16] MEDS ORDERED: SENNOSIDES 8.6 MG TABLET PO SCH (22:00)
[2023-02-16] MEDS ORDERED: MUPIROCIN OINT 2% 22 GM TUBE ONE (22:15)
[2023-02-17] MEDS: IV NS 0.9% 1,000 ML IV PRN ×2 (04:53→17:46)
[2023-02-17] MEDS: INSULIN REGULAR, HUMAN 100 UNIT/ML 3 ML VIAL SQ PRN ×3 (06:04→17:09)
[2023-02-17 06:39] LABS: CALCIUM, SERUM 8.5 mg/dL (8.5-10.1); CREATININE 0.8 mg/dL (0.6-1.3); MAGNESIUM 1.7 mg/dL (1.8-2.4); PHOSPHORUS 2.4 mg/dL (2.5-4.9); POTASSIUM 3.6 mmol/L (3.5-5.1)
[2023-02-17 07:03] LABS: BASOPHILS % (AUTO) 0.4 % (0.0-2.0); EOSINOPHILS % (AUTO) 0.5 % (0.0-6.0); HEMATOCRIT 33 % (33-45); HEMOGLOBIN 10.6 g/dL (11.5-14.8); LYMPHOCYTES # (AUTO) 1.8 K/uL (0.8-4.8); LYMPHOCYTES % (AUTO) 18.5 % (20.0-44.0); MEAN CORPUSCULAR HEMOGLOBIN 24 PG (26.0-33.0); MEAN CORPUSCULAR HGB CONC 32 g/dl (31.0-36.0); MEAN CORPUSCULAR VOLUME 74 fL (82-100); MONOCYTES # (AUTO) 1.2 K/uL (0.1-1.30); MONOCYTES % (AUTO) 12.3 % (2.0-12.0); NEUTROPHILS # (AUTO) 6.7 K/uL (1.8-8.9); NEUTROPHILS % (AUTO) 68.3 % (43.0-81.0); PLATELET COUNT (AUTO) 219 K/uL (150-450); RED BLOOD CELL COUNT(AUTO) 4.47 MIL/uL (4.0-5.2); RED CELL DISTRIBUTION WIDTH 16.3 % (11.5-15.0); WHITE BLOOD COUNT (AUTO) 9.8 K/uL (4.3-11.0)
[2023-02-17] MEDS: BLOOD SUGAR DIAGNOSTIC 1 EACH STRIP IN SCH ×4 (07:58→21:38)
[2023-02-17 08:00] VITALS: BP 160/58; TEMP 98.4; O2SAT 93
[2023-02-17] MEDS: PANTOPRAZOLE 40 MG TABLET.DR PO SCH (08:11)
[2023-02-17] MEDS: ENOXAPARIN SODIUM 40 MG/0.4 ML DISP.SYRIN SQ SCH (08:23)
[2023-02-17] MEDS: DOCUSATE SODIUM 100 MG CAPSULE PO SCH ×2 (08:39→16:55)
[2023-02-17] MEDS: LINAGLIPTIN 5 MG TABLET PO SCH (08:39)
[2023-02-17] MEDS: MEMANTINE HCL 5 MG TABLET PO SCH ×2 (08:39→16:54)
[2023-02-17] MEDS: METFORMIN 500 MG TABLET PO SCH ×2 (08:39→16:54)
[2023-02-17] MEDS: DONEPEZIL 5 MG TABLET PO SCH (08:39)
[2023-02-17] MEDS: LOSARTAN POTASSIUM 50 MG TABLET PO SCH (08:40)
[2023-02-17] MEDS: MONTELUKAST SODIUM (10MG) 10 MG TABLET PO SCH (08:40)
[2023-02-17] MEDS: hydrALAZINE HCL 50 MG TABLET PO SCH (08:40)
[2023-02-17] MEDS: METOPROLOL SUCCINATE 50 MG TAB.SR.24H PO SCH (08:40)
[2023-02-17] MEDS: NIFEDIPINE XL 60 MG TAB.ER.24 PO SCH (08:40)
[2023-02-17] MEDS: BENZTROPINE MESYLATE (1 MG) 1 MG TABLET PO SCH ×2 (08:41→16:54)
[2023-02-17] MEDS: HYDROCHLOROTHIAZIDE 25 MG TABLET PO SCH (08:42)
[2023-02-17] MEDS ORDERED: hydrALAZINE HCL IV 20 MG VIAL IV PRN (09:00)
[2023-02-17] MEDS: MUPIROCIN OINT 2% 22 GM TUBE NS SCH ×2 (09:08→21:37)
[2023-02-17] MEDS: CLOTRIMAZOLE 1% 15 GM TUBE TP SCH ×2 (10:17→16:55)
[2023-02-17] MEDS ORDERED: LIDOCAINE 1%-EPI 1:100,000 20 ML VIAL TP ONE (11:00)
[2023-02-17] MEDS ORDERED: SILVER NITRATE APPLICATOR 1 EA BOX TP ONE (11:00)
[2023-02-17] MEDS ORDERED: MAGNESIUM OXIDE 400 MG TABLET PO ONE (11:00)
[2023-02-17 16:00] VITALS: BP 106/50; TEMP 98.6; O2SAT 94
[2023-02-17] MEDS ORDERED: NEUTRA PHOS 1 POWD.PACKET PO ONE (16:00)
[2023-02-17] MEDS: SENNOSIDES 8.6 MG TABLET PO SCH (21:38)
[2023-02-17] MEDS: AZITHROMYCIN 500 MG in IV D5W 250 ML IV SCH (22:08)
[2023-02-17 22:25] VITALS: BP 102/48; TEMP 98.4; O2SAT 98
[2023-02-18] MEDS: IV NS 0.9% 1,000 ML IV PRN ×2 (06:26→11:03)
[2023-02-18] MEDS: BLOOD SUGAR DIAGNOSTIC 1 EACH STRIP IN SCH ×4 (06:56→21:32)
[2023-02-18] MEDS: INSULIN REGULAR, HUMAN 100 UNIT/ML 3 ML VIAL SQ PRN ×3 (06:56→21:33)
[2023-02-18 07:08] LABS: APPEARANCE,URINE SLIGHTLY CLOUDY (CLEAR); BILIRUBIN,URINE NEGATIVE (NEGATIVE); BLOOD, URINE TRACE-INTA Ery/uL (NEGATIVE); COLOR,URINE DARK YELLOW (YELLOW); KETONES,URINE TRACE mg/dL (NEGATIVE); LEUKOCYTE ESTERASE ,URINE 2+ (NEGATIVE); NITRITE, URINE POSITIVE (NEGATIVE); PH,URINE 5.5 (5.0-8.0); PROTEIN,URINE TRACE mg/dl (NEGATIVE); UGLUCOSE NEGATIVE (NEGATIVE); UROBILINOGEN,URINE 0.2 EU/dL (0.2)
[2023-02-18 07:10] LABS: ADD URINE CULTURE YES; BACTERIA,URINE Few /HPF (None Seen); RBC,URINE 0-2 /HPF (0-2); SQUAMOUS EPITHELIAL CELL,UR Rare /HPF (None Seen)
[2023-02-18 07:34] LABS: BASOPHILS # (AUTO) 0.1 K/uL (0.0-0.2); BASOPHILS % (AUTO) 0.6 % (0.0-2.0); EOSINOPHILS # (AUTO) 0.1 K/uL (0.0-0.7); EOSINOPHILS % (AUTO) 0.9 % (0.0-6.0); HEMATOCRIT 36 % (33-45); HEMOGLOBIN 11.3 g/dL (11.5-14.8); LYMPHOCYTES # (AUTO) 1.3 K/uL (0.8-4.8); LYMPHOCYTES % (AUTO) 13.7 % (20.0-44.0); MEAN CORPUSCULAR HEMOGLOBIN 24 PG (26.0-33.0); MEAN CORPUSCULAR HGB CONC 32 g/dl (31.0-36.0); MEAN CORPUSCULAR VOLUME 75 fL (82-100); MONOCYTES % (AUTO) 10.3 % (2.0-12.0); NEUTROPHILS # (AUTO) 7.1 K/uL (1.8-8.9); NEUTROPHILS % (AUTO) 74.5 % (43.0-81.0); PLATELET COUNT (AUTO) 275 K/uL (150-450); RED BLOOD CELL COUNT(AUTO) 4.81 MIL/uL (4.0-5.2); RED CELL DISTRIBUTION WIDTH 15.4 % (11.5-15.0); WHITE BLOOD COUNT (AUTO) 9.5 K/uL (4.3-11.0)
[2023-02-18 07:48] LABS: CALCIUM, SERUM 8.9 mg/dL (8.5-10.1); CARBON DIOXIDE 21 mmol/L (21-32); CHLORIDE 106 mmol/L (98-107); CREATININE 0.9 mg/dL (0.6-1.3); GLUCOSE 166 mg/dL (74-106); PHOSPHORUS 3.2 mg/dL (2.5-4.9); POTASSIUM 3.5 mmol/L (3.5-5.1); SODIUM SERUM 142 mmol/L (136-145); UREA NITROGEN, BLOOD 20 mg/dL (7-18)
[2023-02-18 08:00] VITALS: BP 102/53; TEMP 98.8; O2SAT 95
[2023-02-18] MEDS: PANTOPRAZOLE 40 MG TABLET.DR PO SCH (08:29)
[2023-02-18] MEDS: METFORMIN 500 MG TABLET PO SCH ×2 (08:29→16:46)
[2023-02-18] MEDS: DONEPEZIL 5 MG TABLET PO SCH (08:29)
[2023-02-18] MEDS: LINAGLIPTIN 5 MG TABLET PO SCH (08:29)
[2023-02-18] MEDS: MONTELUKAST SODIUM (10MG) 10 MG TABLET PO SCH (08:30)
[2023-02-18] MEDS: DOCUSATE SODIUM 100 MG CAPSULE PO SCH ×2 (08:30→16:46)
[2023-02-18] MEDS: BENZTROPINE MESYLATE (1 MG) 1 MG TABLET PO SCH ×2 (08:30→16:45)
[2023-02-18] MEDS: MEMANTINE HCL 5 MG TABLET PO SCH ×2 (08:30→16:46)
[2023-02-18] MEDS: CLOTRIMAZOLE 1% 15 GM TUBE TP SCH ×2 (08:31→16:53)
[2023-02-18] MEDS: NIFEDIPINE XL 60 MG TAB.ER.24 PO SCH (08:33)
[2023-02-18] MEDS: METOPROLOL SUCCINATE 50 MG TAB.SR.24H PO SCH (08:33)
[2023-02-18] MEDS: HYDROCHLOROTHIAZIDE 25 MG TABLET PO SCH (08:33)
[2023-02-18] MEDS: LOSARTAN POTASSIUM 50 MG TABLET PO SCH (08:33)
[2023-02-18] MEDS: ENOXAPARIN SODIUM 40 MG/0.4 ML DISP.SYRIN SQ SCH (08:34)
[2023-02-18] MEDS: hydrALAZINE HCL 50 MG TABLET PO SCH (08:34)
[2023-02-18] MEDS: MUPIROCIN OINT 2% 22 GM TUBE NS SCH ×2 (08:52→20:20)
[2023-02-18] MEDS ORDERED: IV NS 0.9% 1,000 ML IV SCH (09:00)
[2023-02-18] MEDS: CEFTRIAXONE 1 G in IV D5W 50 ML IV SCH (10:44)
[2023-02-18 16:00] VITALS: TEMP 99.5; O2SAT 91
[2023-02-18 20:00] VITALS: BP 104/82; TEMP 100.9; O2SAT 92
[2023-02-18] MEDS: AZITHROMYCIN 500 MG in IV D5W 250 ML IV SCH (21:17)
[2023-02-18] MEDS: SENNOSIDES 8.6 MG TABLET PO SCH (21:17)
[2023-02-19] MEDS: IV NS 0.9% 1,000 ML IV PRN ×2 (01:55→17:28)
[2023-02-19 05:59] LABS: BASOPHILS # (AUTO) 0.1 K/uL (0.0-0.2); BASOPHILS % (AUTO) 0.7 % (0.0-2.0); EOSINOPHILS # (AUTO) 0.1 K/uL (0.0-0.7); EOSINOPHILS % (AUTO) 1.4 % (0.0-6.0); HEMATOCRIT 33 % (33-45); HEMOGLOBIN 10.5 g/dL (11.5-14.8); LYMPHOCYTES # (AUTO) 1.8 K/uL (0.8-4.8); LYMPHOCYTES % (AUTO) 20.6 % (20.0-44.0); MEAN CORPUSCULAR HEMOGLOBIN 24 PG (26.0-33.0); MEAN CORPUSCULAR HGB CONC 32 g/dl (31.0-36.0); MEAN CORPUSCULAR VOLUME 75 fL (82-100); MONOCYTES # (AUTO) 1.1 K/uL (0.1-1.30); MONOCYTES % (AUTO) 12.9 % (2.0-12.0); NEUTROPHILS # (AUTO) 5.6 K/uL (1.8-8.9); NEUTROPHILS % (AUTO) 64.4 % (43.0-81.0); PLATELET COUNT (AUTO) 270 K/uL (150-450); RED BLOOD CELL COUNT(AUTO) 4.44 MIL/uL (4.0-5.2); WHITE BLOOD COUNT (AUTO) 8.7 K/uL (4.3-11.0)
[2023-02-19 06:11] LABS: CALCIUM, SERUM 8.7 mg/dL (8.5-10.1); CARBON DIOXIDE 26 mmol/L (21-32); CHLORIDE 107 mmol/L (98-107); CREATININE 0.7 mg/dL (0.6-1.3); GLUCOSE 138 mg/dL (74-106); MAGNESIUM 1.9 mg/dL (1.8-2.4); PHOSPHORUS 2.9 mg/dL (2.5-4.9); POTASSIUM 3.2 mmol/L (3.5-5.1); SODIUM SERUM 141 mmol/L (136-145); UREA NITROGEN, BLOOD 22 mg/dL (7-18)
[2023-02-19] MEDS: BLOOD SUGAR DIAGNOSTIC 1 EACH STRIP IN SCH ×4 (07:19→21:41)
[2023-02-19 08:00] VITALS: BP 120/43; TEMP 98.6; O2SAT 97
[2023-02-19] MEDS: PANTOPRAZOLE 40 MG TABLET.DR PO SCH (08:18)
[2023-02-19] MEDS: DONEPEZIL 5 MG TABLET PO SCH (08:52)
[2023-02-19] MEDS: BENZTROPINE MESYLATE (1 MG) 1 MG TABLET PO SCH ×2 (08:53→17:05)
[2023-02-19] MEDS: DOCUSATE SODIUM 100 MG CAPSULE PO SCH ×2 (08:53→17:05)
[2023-02-19] MEDS: MONTELUKAST SODIUM (10MG) 10 MG TABLET PO SCH (08:53)
[2023-02-19] MEDS: METFORMIN 500 MG TABLET PO SCH ×2 (08:53→17:05)
[2023-02-19] MEDS: MEMANTINE HCL 5 MG TABLET PO SCH ×2 (08:53→17:05)
[2023-02-19] MEDS: LINAGLIPTIN 5 MG TABLET PO SCH (08:53)
[2023-02-19] MEDS: LOSARTAN POTASSIUM 50 MG TABLET PO SCH (08:54)
[2023-02-19] MEDS: NIFEDIPINE XL 60 MG TAB.ER.24 PO SCH (08:54)
[2023-02-19] MEDS: HYDROCHLOROTHIAZIDE 25 MG TABLET PO SCH (08:55)
[2023-02-19] MEDS: hydrALAZINE HCL 50 MG TABLET PO SCH (08:55)
[2023-02-19] MEDS: METOPROLOL SUCCINATE 50 MG TAB.SR.24H PO SCH (08:55)
[2023-02-19] MEDS: ENOXAPARIN SODIUM 40 MG/0.4 ML DISP.SYRIN SQ SCH (08:57)
[2023-02-19] MEDS ORDERED: POTASSIUM CHLORIDE 20 MEQ TAB.PRT.SR PO ONE (09:00)
[2023-02-19] MEDS: MUPIROCIN OINT 2% 22 GM TUBE NS SCH ×2 (09:17→20:58)
[2023-02-19] MEDS: CLOTRIMAZOLE 1% 15 GM TUBE TP SCH ×2 (09:17→17:10)
[2023-02-19] MEDS: CEFTRIAXONE 1 G in IV D5W 50 ML IV SCH (09:57)
[2023-02-19] MEDS: GLUCERNA SHAKE 237 ML CAN PO SCH ×2 (11:41→17:06)
[2023-02-19] MEDS: INSULIN REGULAR, HUMAN 100 UNIT/ML 3 ML VIAL SQ PRN (13:26)
[2023-02-19 16:00] VITALS: BP 127/98; TEMP 98.6; O2SAT 99
[2023-02-19] MEDS: risperiDONE 0.25 MG TABLET PO SCH (17:05)
[2023-02-19 20:14] VITALS: BP 138/46; TEMP 99.1; O2SAT 96
[2023-02-19] MEDS: SENNOSIDES 8.6 MG TABLET PO SCH (21:15)
[2023-02-19] MEDS: AZITHROMYCIN 500 MG in IV D5W 250 ML IV SCH (21:18)
[2023-02-20 06:00] LABS: BASOPHILS # (AUTO) 0.1 K/uL (0.0-0.2); BASOPHILS % (AUTO) 1.1 % (0.0-2.0); EOSINOPHILS # (AUTO) 0.2 K/uL (0.0-0.7); EOSINOPHILS % (AUTO) 2.2 % (0.0-6.0); HEMATOCRIT 34 % (33-45); HEMOGLOBIN 11.2 g/dL (11.5-14.8); LYMPHOCYTES # (AUTO) 1.2 K/uL (0.8-4.8); LYMPHOCYTES % (AUTO) 15.7 % (20.0-44.0); MEAN CORPUSCULAR HEMOGLOBIN 24 PG (26.0-33.0); MEAN CORPUSCULAR HGB CONC 33 g/dl (31.0-36.0); MEAN CORPUSCULAR VOLUME 74 fL (82-100); MONOCYTES # (AUTO) 0.9 K/uL (0.1-1.30); MONOCYTES % (AUTO) 11.9 % (2.0-12.0); NEUTROPHILS # (AUTO) 5.3 K/uL (1.8-8.9); NEUTROPHILS % (AUTO) 69.1 % (43.0-81.0); PLATELET COUNT (AUTO) 276 K/uL (150-450); RED CELL DISTRIBUTION WIDTH 15.9 % (11.5-15.0); WHITE BLOOD COUNT (AUTO) 7.7 K/uL (4.3-11.0)
[2023-02-20] MEDS: BLOOD SUGAR DIAGNOSTIC 1 EACH STRIP IN SCH ×4 (06:02→22:49)
[2023-02-20 06:13] LABS: CALCIUM, SERUM 8.9 mg/dL (8.5-10.1); CREATININE 0.6 mg/dL (0.6-1.3); MAGNESIUM 1.6 mg/dL (1.8-2.4); PHOSPHORUS 2.8 mg/dL (2.5-4.9); POTASSIUM 3.2 mmol/L (3.5-5.1)
[2023-02-20 08:00] VITALS: BP 159/60; TEMP 99.1; O2SAT 97
[2023-02-20] MEDS ORDERED: POTASSIUM CHLORIDE 20 MEQ TAB.PRT.SR PO ONE (08:00)
[2023-02-20] MEDS: PANTOPRAZOLE 40 MG TABLET.DR PO SCH (08:39)
[2023-02-20] MEDS: GLUCERNA SHAKE 237 ML CAN PO SCH ×3 (08:54→17:12)
[2023-02-20] MEDS: LINAGLIPTIN 5 MG TABLET PO SCH ×2 (09:00→09:21)
[2023-02-20] MEDS: BENZTROPINE MESYLATE (1 MG) 1 MG TABLET PO SCH ×4 (09:00→17:12)
[2023-02-20] MEDS: NIFEDIPINE XL 60 MG TAB.ER.24 PO SCH ×2 (09:00→09:22)
[2023-02-20] MEDS: risperiDONE 0.25 MG TABLET PO SCH ×4 (09:00→17:12)
[2023-02-20] MEDS: MEMANTINE HCL 5 MG TABLET PO SCH ×4 (09:00→17:12)
[2023-02-20] MEDS: MONTELUKAST SODIUM (10MG) 10 MG TABLET PO SCH ×2 (09:00→09:21)
[2023-02-20] MEDS ORDERED: MAGNESIUM OXIDE 400 MG TABLET PO SCH (09:00)
[2023-02-20] MEDS: METFORMIN 500 MG TABLET PO SCH ×4 (09:00→17:12)
[2023-02-20] MEDS: DOCUSATE SODIUM 100 MG CAPSULE PO SCH ×4 (09:00→17:12)
[2023-02-20] MEDS: LOSARTAN POTASSIUM 50 MG TABLET PO SCH ×2 (09:00→09:20)
[2023-02-20] MEDS: hydrALAZINE HCL 50 MG TABLET PO SCH ×2 (09:00→09:23)
[2023-02-20] MEDS: HYDROCHLOROTHIAZIDE 25 MG TABLET PO SCH ×2 (09:00→09:23)
[2023-02-20] MEDS: METOPROLOL SUCCINATE 50 MG TAB.SR.24H PO SCH ×2 (09:00→09:22)
[2023-02-20] MEDS: POTASSIUM CL. PREMIX PERIPHER. 50 ML IV SCH ×4 (09:08→12:47)
[2023-02-20] MEDS: MUPIROCIN OINT 2% 22 GM TUBE NS SCH ×2 (09:09→21:49)
[2023-02-20] MEDS: ENOXAPARIN SODIUM 40 MG/0.4 ML DISP.SYRIN SQ SCH (09:17)
[2023-02-20] MEDS: DONEPEZIL 5 MG TABLET PO SCH (09:21)
[2023-02-20] MEDS: CLOTRIMAZOLE 1% 15 GM TUBE TP SCH ×2 (09:31→17:13)
[2023-02-20] MEDS: CEFTRIAXONE 1 G in IV D5W 50 ML IV SCH (10:17)
[2023-02-20] MEDS: Magnesium 1GM/D5W 100ML PREMIX 100 ML IV SCH ×2 (12:23→13:27)
[2023-02-20] MEDS: INSULIN REGULAR, HUMAN 100 UNIT/ML 3 ML VIAL SQ PRN ×2 (12:48→17:11)
[2023-02-20 16:00] VITALS: BP 123/58; TEMP 99.7; O2SAT 97
[2023-02-20] MEDS: HYDROCODONE/APAP 5/325MG TABLET PO PRN (19:32)
[2023-02-20 20:00] VITALS: BP 123/53; TEMP 98.8; O2SAT 96
[2023-02-20] MEDS: SENNOSIDES 8.6 MG TABLET PO SCH (22:40)
[2023-02-21 06:25] LABS: BASOPHILS # (AUTO) 0.1 K/uL (0.0-0.2); BASOPHILS % (AUTO) 1.1 % (0.0-2.0); EOSINOPHILS # (AUTO) 0.3 K/uL (0.0-0.7); EOSINOPHILS % (AUTO) 4.3 % (0.0-6.0); HEMATOCRIT 35 % (33-45); LYMPHOCYTES # (AUTO) 1.6 K/uL (0.8-4.8); MEAN CORPUSCULAR HEMOGLOBIN 23 PG (26.0-33.0); MEAN CORPUSCULAR HGB CONC 32 g/dl (31.0-36.0); MEAN CORPUSCULAR VOLUME 74 fL (82-100); MONOCYTES # (AUTO) 0.7 K/uL (0.1-1.30); MONOCYTES % (AUTO) 10.8 % (2.0-12.0); NEUTROPHILS # (AUTO) 3.8 K/uL (1.8-8.9); NEUTROPHILS % (AUTO) 58.8 % (43.0-81.0); PLATELET COUNT (AUTO) 294 K/uL (150-450); RED BLOOD CELL COUNT(AUTO) 4.72 MIL/uL (4.0-5.2); RED CELL DISTRIBUTION WIDTH 15.7 % (11.5-15.0); WHITE BLOOD COUNT (AUTO) 6.5 K/uL (4.3-11.0)
[2023-02-21] MEDS: BLOOD SUGAR DIAGNOSTIC 1 EACH STRIP IN SCH ×2 (06:35→12:09)
[2023-02-21 06:42] LABS: CALCIUM, SERUM 9.2 mg/dL (8.5-10.1); CARBON DIOXIDE 27 mmol/L (21-32); CHLORIDE 105 mmol/L (98-107); CREATININE 0.5 mg/dL (0.6-1.3); GLUCOSE 126 mg/dL (74-106); POTASSIUM 3.7 mmol/L (3.5-5.1); SODIUM SERUM 139 mmol/L (136-145); UREA NITROGEN, BLOOD 15 mg/dL (7-18)
[2023-02-21 08:00] VITALS: BP 129/51; TEMP 98.1; O2SAT 95
[2023-02-21] MEDS: DOCUSATE SODIUM 100 MG CAPSULE PO SCH (09:26)
[2023-02-21] MEDS: ENOXAPARIN SODIUM 40 MG/0.4 ML DISP.SYRIN SQ SCH (09:26)
[2023-02-21] MEDS: HYDROCHLOROTHIAZIDE 25 MG TABLET PO SCH (09:27)
[2023-02-21] MEDS: MEMANTINE HCL 5 MG TABLET PO SCH (09:28)
[2023-02-21] MEDS: LOSARTAN POTASSIUM 50 MG TABLET PO SCH (09:28)
[2023-02-21] MEDS: MONTELUKAST SODIUM (10MG) 10 MG TABLET PO SCH (09:28)
[2023-02-21] MEDS: hydrALAZINE HCL 50 MG TABLET PO SCH (09:29)
[2023-02-21] MEDS: PANTOPRAZOLE 40 MG TABLET.DR PO SCH (09:29)
[2023-02-21] MEDS: risperiDONE 0.25 MG TABLET PO SCH (09:29)
[2023-02-21] MEDS: METOPROLOL SUCCINATE 50 MG TAB.SR.24H PO SCH (09:29)
[2023-02-21] MEDS: DONEPEZIL 5 MG TABLET PO SCH (09:30)
[2023-02-21] MEDS: LINAGLIPTIN 5 MG TABLET PO SCH (09:30)
[2023-02-21] MEDS: NIFEDIPINE XL 60 MG TAB.ER.24 PO SCH (09:30)
[2023-02-21] MEDS: METFORMIN 500 MG TABLET PO SCH (09:30)
[2023-02-21] MEDS: MUPIROCIN OINT 2% 22 GM TUBE NS SCH (09:33)
[2023-02-21] MEDS: GLUCERNA SHAKE 237 ML CAN PO SCH ×2 (09:33→12:09)
[2023-02-21] MEDS: CLOTRIMAZOLE 1% 15 GM TUBE TP SCH (09:34)
[2023-02-21] MEDS: BENZTROPINE MESYLATE (1 MG) 1 MG TABLET PO SCH (09:40)
[2023-02-21] MEDS: CEFTRIAXONE 1 G in IV D5W 50 ML IV SCH (09:50)
[2023-02-21] MEDS: HYDROCODONE/APAP 5/325MG TABLET PO PRN (11:31)
[2023-02-21] MEDS ORDERED: LEVO500T90 PO (11:47)
[2023-02-21] MEDS ORDERED: CEPH500C2 PO (11:50)
[2023-02-21] MEDS: INSULIN REGULAR, HUMAN 100 UNIT/ML 3 ML VIAL SQ PRN (12:47)
[2023-02-21 16:11] VITALS: BP 104/55; TEMP 97.9; O2SAT 96
== END 2023-02-21 16:00 | DRG 689 ==
LOC: MED 20:20 → TELE 23:34 → MED 02-16 10:00
PROVIDERS: ATTEND Internal Medicine
PROC: 0HB1XZX Excision of Face Skin, External Approach, Diagnostic (ICD-10-PCS; principal; 2023-02-18)
PROC: 05H533Z Insertion of Infusion Device into Right Subclavian Vein, Percutaneous Approach (ICD-10-PCS; 2023-02-20)
PROC: B546ZZA Ultrasonography of Right Subclavian Vein, Guidance (ICD-10-PCS; 2023-02-20)
DX: N39.0 Urinary tract infection, site not specified (principal); G93.41 Metabolic encephalopathy; E44.0 Moderate protein-calorie malnutrition; F05 Delirium due to known physiological condition; F03.94 Unspecified dementia, unspecified severity, with anxiety; F03.93 Unspecified dementia, unspecified severity, with mood disturbance; R62.7 Adult failure to thrive; I11.0 Hypertensive heart disease with heart failure; E11.9 Type 2 diabetes mellitus without complications; E88.09 Other disorders of plasma-protein metabolism, not elsewhere classified; Z79.84 Long term (current) use of oral hypoglycemic drugs; F29 Unspecified psychosis not due to a substance or known physiological condition; F41.9 Anxiety disorder, unspecified; F31.9 Bipolar disorder, unspecified; Z87.440 Personal history of urinary (tract) infections; B96.20 Unspecified Escherichia coli [E. coli] as the cause of diseases classified elsewhere; Z68.31 Body mass index [BMI] 31.0-31.9, adult; F39 Unspecified mood [affective] disorder; C44.311 Basal cell carcinoma of skin of nose; I50.9 Heart failure, unspecified; L98.8 Other specified disorders of the skin and subcutaneous tissue
CPT/HCPCS: 36410; 36415; 70450-TC; 71045-TC; 80048-TC; 80061-TC; 81001; 82962-TC; 83735-TC; 84100-TC; 84443-TC; 85025-TC; 87040-TC; 87081-TC; 87086-TC; 88305-TC; 92526; 92611-TC; 97110-TC; 97530-TC; A4223; A6403; G0378; J0456; J0696; J1650; J1815; J3475; J3480; J3490; J7030; J7060